=== PATIENT | male | born 1945 | race Caucasian/White ===

== ENCOUNTER 2021-09-06 06:37 | Inpatient (IN) ==
--- NOTE | 2021-09-06 06:54 | DR.EXTPAIN ---
HPI <RANJIT DEREK Last Filed: 09/22/21 08:09> Time seen Time Seen by Provider: 09/06/21 06:53 HPI Comment HPI Comment: PATIENT IS 76YR OLD MALE IN ER WITH RIGHT FOOT NUMBNESS AND GENERALIZED BODYACHES. FELL THIS AM AND IS HAVING INCREASING SOB. O2 SAT LOW WHEN EMS ARRIVE AT PATIENT HOME. PAIN LEFT GROIN. Complaint/Symptoms Chief Complaint Doctor Comments: GENERALIZED BODYACHES AND RIGHT FOOT NUMBNESS, FELL THIS AM. COVID-19 Coronavirus risk:travel/contact w/high risk person: No Has patient experienced Coronavirus symptoms: No Nurses notes reviewed Nurses Notes Review: Yes Source History Provided: Patient and EMS Mode of arrival Mode of Arrival: EMS Context History of: Arthritis Associated signs and symptoms Associated Signs and Symptoms: Pain and Swelling PMH <RANJIT DEREK - Last Filed: 09/22/21 08:09> PMH Past Surgical History: Yes ROS <NAZGORDON DEREK - Last Filed: 09/22/21 08:09> Review of Systems Constitutional: See HPI, Fever and Weakness Eyes: No Symptoms Reported and See HPI ENTM: No Symptoms Reported; negative Nose Discharge and Nose Congestion Respiratoy: See HPI and Short of Breath; negative Moist Cough and Wheezing Cardiovascular: No Symptoms Reported and See HPI; negative Chest Pain Gastrointestinal/Abdominal: See HPI and Abdominal Pain (LEFT GROIN PAIN.); neg ative Diarrhea, Nausea and Vomiting Genitourinary: No Symptoms Reported and See HPI; negative Dysuria Neurological: See HPI, Headache and Weakness; negative Dizziness Musculoskeletal: No Symptoms Reported, See HPI, Leg (RT) and Foot (RT) Integumentary: No Symptoms Reported, See HPI and Wound (RIGHT FOOT UNLCER NOT INSPECTED.) Hematologic/Lymphatic: No Symptoms Reported and See HPI; negative Easy Bruising Endocrine: No Symptoms Reported and See HPI; negative Increased Thirst and Increased Urine Psychiatric: No Symptoms Reported and See HPI All Other Systems: Reviewed and Negative PE <RANJIT DEREK Last Filed: 09/22/21 08:09> Vital Signs Vitals: Temperature 102.0 F Pulse Rate 105 Respiratory Rate 26 Blood Pressure 144/56 O2 Sat by Pulse Oximetry 95 General Limitations: No Limitations General Appearance: Alert and In No Apparent Distress Head Head Exam: Normal Inspection Eyes Eye exam: Normal Appearance; negative Scleral Icterus and Conjunctival Injection ENT ENT Exam: Normal Exam, Normal Oropharynx, Normal External Ear Exam and TM's Normal Bilaterally Neck Neck Exam: Normal Inspection and Trachea Midline; negative Tenderness Chest Chest Inspection: Normal Inspection and Symmetric Chest Wall Rise; negative Tenderness Respiratory Respiratory Exam: Normal Lung Sounds Bilat; negative Accessory Muscle Use, Chest Wall Tenderness and Respiratory Distress Respiratory Exam: Bilateral: Rhonchi and Lower: Rhonchi Cardiovascular Cardiovascular Exam: Regular Rate, Normal Rhythm and Normal Heart Sounds; negative Systolic Murmur and Diastolic Murmur Abdominal Exam Abdominal Exam: Normal Bowel Sounds, Soft, Tenderness and Other (LEFT GROIN TRNDER.) Extremities Extremities Exam: Normal Inspection and Other (FOOT ULCER AND INFECTION NOT INPECTED AT THIS TIME.) Back Back Exam: Normal Inspection; negative (R) CVA Tenderness and (L) CVA Tenderness Neurological Neurological Exam: Alert and Oriented X3; negative Motor Sensory Deficit Psychiatric Psychiatric Exam: Normal Affect and Normal Mood Skin Skin Exam: Warm, Dry, Intact and Normal Color <Jhon Burrell - Last Filed: 09/06/21 10:35> Vital Signs Vitals: Temperature 102.0 F Pulse Rate 105 Respiratory Rate 26 Blood Pressure 144/56 O2 Sat by Pulse Oximetry 95 MDM <RANJIT OCHOA - Last Filed: 09/22/21 08:09> Differential Diagnosis Differential Diagnosis: Other (CELLULITIS RIGHT FOOT AND LEG, LEFT GROIN PAIN, WEAKNESS) COURSE <RANJIT OCHOA - Last Filed: 09/22/21 08:09> Treatment Treatment: SEE ORDERS. PATIENT SIGN OUT TO DR. BURRELL AT CHANGE OF SHIFT. <Jhon Burrell - Last Filed: 09/06/21 10:35> Treatment Treatment: Pt iniitally seen and worked up by Dr Ochoa, signed over to me. W/u shows markedly elevated WBCs, 33K, last value in the computer was relatively normal. Pt has been under the care of Dr Eugene for bilateral lower extremity ulcerations. 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 Legs being treated with dressings, changed 2x/week. Pt was given IV antibiotic. Legs unwrapped, + diffuse edema, shallow ulcerations/wounds, stage II wounds. + diffuse induratino with mild erythema. CXR interpreted as without infiltrates, though has some increased markings of R base. Will admit for treatment of probable cellulitis of his legs. Disucssed with the covering attending, Dr Ghotra, will admit. ROR <RANJIT OCHOA - Last Filed: 09/22/21 08:09> Labs Reviewed Laboratory Results Reviewed?: Yes Result Diagrams: 09/15/21 04:27 09/15/21 04:27 Laboratory: 09/06/21 07:52 Blood Blood Culture - Final 09/06/21 07:26 Blood Blood Culture - Final WBC 33.1 X10^3/uL (3.6-10.0) H* 09/06/21 07:26 RBC 4.55 X10^6/uL (4.7-6.0) L 09/06/21 07:26 Hgb 11.9 g/dL (13.5-18.0) L 09/06/21 07:26 Hct 37.4 % (42.0-54.0) L 09/06/21 07:26 MCV 82.1 fL (80.0-100.0) 09/06/21 07:26 MCH 26.1 pg (27.0-34.0) L 09/06/21 07:26 MCHC 31.8 g/dL (33.0-35.0) L 09/06/21 07:26 RDW 16.8 % (11.6-16.5) H 09/06/21 07:26 Plt Count 367 X10^3/uL (150.0-450.0) 09/06/21 07:26 Plt Count Comment Adequate (ADEQUATE) 09/06/21 07:26 MPV 8.2 fL (7.4-11.0) 09/06/21 07:26 Neut % (Auto) 85.3 % (42.0-75.0) H 09/06/21 07:26 Lymph % (Auto) 8.7 % (21.0-51.0) L 09/06/21 07:26 Desha % (Auto) 5.2 % (0.0-13.0) 09/06/21 07:26 Eos % (Auto) 0.0 % (0.9-2.9) L 09/06/21 07:26 Baso % (Auto) 0.8 % (0.2-1.0) 09/06/21 07:26 Neut # (Auto) 28.2 x10^3/uL (2.2-4.8) H 09/06/21 07:26 Lymph # (Auto) 2.9 X10^3/uL (1.3-2.9) 09/06/21 07:26 Desha # (Auto) 1.7 x10^3/uL (0.3-0.8) H 09/06/21 07:26 Eos # (Auto) 0.0 x10^3/uL (0.0-0.2) 09/06/21 07:26 Baso # (Auto) 0.3 X10^3/uL (0.0-0.1) H 09/06/21 07:26 Absolute Nucleated RBC 0.0 /100WBC 09/06/21 07:26 Total Counted 100 09/06/21 07:26 Neutrophils % (Manual) 65 % (39-76) 09/06/21 07:26 Band Neutrophils % 19 % (0-10) H 09/06/21 07:26 Lymphocytes % (Manual) 10 % (13-43) L 09/06/21 07:26 Monocytes % (Manual) 4 % (4-9) 09/06/21 07:26 Metamyelocytes % 2 09/06/21 07:26 Plt Morphology Comment Normal (NORMAL) 09/06/21 07:26 RBC Morphology Abnormal (NORMAL) 09/06/21 07:26 Hypochromasia Slight A 09/06/21 07:26 Tear Drop Cells Slight 09/06/21 07:26 Sodium 137 mmol/L (136-145) 09/06/21 07:26 Corrected Sodium 142 mmol/L (136-145) 09/06/21 07:26 Potassium 4.0 mmol/L (3.5-5.1) 09/06/21 07:26 Chloride 102 mmol/L (98-107) 09/06/21 07:26 Carbon Dioxide 25.7 mmol/L (21-32) 09/06/21 07:26 BUN 26 mg/dL (7-18) H 09/06/21 07:26 Creatinine 1.20 mg/dL (0.70-1.30) 09/06/21 07:26 Est GFR (MDRD) Af Amer > 60 (>60) 09/06/21 07:26 Est GFR (MDRD) Non-Af > 60 (>60) 09/06/21 07:26 Glucose 299 mg/dL (65-99) H 09/06/21 07:26 Lactic Acid 2.7 mmol/L (0.4-2.0) H 09/06/21 07:26 Calcium 8.1 mg/dL (8.5-10.1) L 09/06/21 07:26 Corrected Calcium 9.1 mg/dL (8.5-10.1) 09/06/21 07:26 Total Bilirubin 0.70 mg/dL (0.2-1.0) 09/06/21 07:26 AST 49 Units/L (15-37) H 09/06/21 07:26 ALT 24 Units/L (12-78) 09/06/21 07:26 Alkaline Phosphatase 107 Units/L (46-116) 09/06/21 07:26 Creatine Kinase 1030 Units/L (39-308) H 09/06/21 07:26 CK-MB (CK-2) 9.0 ng/mL (0-4.0) H* 09/06/21 07:26 CK/CKMB % Calc 0.9 % (<4) 09/06/21 07:26 Troponin I High Sens 35.8 ng/L (4.0-60.0) 09/06/21 07:26 Total Protein 6.9 g/dL (6.4-8.2) 09/06/21 07:26 Albumin 2.8 g/dL (3.4-5.0) L 09/06/21 07:26 Globulin 4.1 g/dL (2.5-4.5) 09/06/21 07:26 Albumin/Globulin Ratio 0.7 Ratio (1.1-2.1) L 09/06/21 07:26 Specimen Type Catherized urine 09/06/21 07:26 Urine Color Yellow (YELLOW) 09/06/21 07:26 Urine Appearance Clear (CLEAR) 09/06/21 07:26 Urine pH 8.0 (5.0 - 8.0) 09/06/21 07:26 Ur Specific [place] 1.010 (1.000-1.030) 09/06/21 07:26 Urine Protein 1+ (NEGATIVE) 09/06/21 07:26 Urine Glucose (UA) 2+ (NEGATIVE) 09/06/21 07:26 Urine Ketones Negative (NEGATIVE) 09/06/21 07:26 Urine Occult Blood 1+ (NEGATIVE) 09/06/21 07:26 Urine Nitrite Negative (NEGATIVE) 09/06/21 07:26 Urine Bilirubin Negative (NEGATIVE) 09/06/21 07:26 Urine Urobilinogen Normal (NORMAL) 09/06/21 07:26 Ur Leukocyte Esterase Negative (NEGATIVE) 09/06/21 07:26 Urine RBC 0-2 /HPF (0-3) 09/06/21 07:26 Urine WBC None seen /HPF (0-5) 09/06/21 07:26 Ur Squamous Epith Cells Rare /HPF (NEGATIVE) 09/06/21 07:26 Urine Bacteria Negative /HPF (NEGATIVE) 09/06/21 07:26 Ur Culture Indicated? No/not indicated 09/06/21 07:26 SARS-CoV-2 (PCR) Negative (NEGATIVE) 09/06/21 09:55 Influenza Type A (PCR) Negative (NEGATIVE) 09/06/21 09:55 Influenza Type B (PCR) Negative (NEGATIVE) 09/06/21 09:55 RSV (PCR) Negative (NEGATIVE) 09/06/21 09:55 XRAY XRAY Interpreted by: Radiologist and Self <Jhon Burrell - Last Filed: 09/06/21 10:35> Labs Reviewed Laboratory Results Reviewed?: Yes Laboratory: 09/06/21 07:52 Blood Blood Culture - Final 09/06/21 07:26 Blood Blood Culture - Final WBC 33.1 X10^3/uL (3.6-10.0) H* 09/06/21 07:26 RBC 4.55 X10^6/uL (4.7-6.0) L 09/06/21 07:26 Hgb 11.9 g/dL (13.5-18.0) L 09/06/21 07:26 Hct 37.4 % (42.0-54.0) L 09/06/21 07:26 MCV 82.1 fL (80.0-100.0) 09/06/21 07:26 MCH 26.1 pg (27.0-34.0) L 09/06/21 07:26 MCHC 31.8 g/dL (33.0-35.0) L 09/06/21 07: RDW 16.8 % (11.6-16.5) H 09/06/21 07:26 Plt Count 367 X10^3/uL (150.0-450.0) 09/06/21 07:26 Plt Count Comment Adequate (ADEQUATE) 09/06/21 07: MPV 8.2 fL (7.4-11.0) 09/06/21 07:26 Neut % (Auto) 85.3 % (42.0-75.0) H 09/06/21 07: Lymph % (Auto) 8.7 % (21.0-51.0) L 09/06/21 07:26 Desha % (Auto) 5.2 % (0.0-13.0) 09/06/21 07:26 Eos % (Auto) 0.0 % (0.9-2.9) L 09/06/21 07: Baso % (Auto) 0.8 % (0.2-1.0) 09/06/21 07:26 Neut # (Auto) 28.2 x10^3/uL (2.2-4.8) H 09/06/21 07:26 Lymph # (Auto) 2.9 X10^3/uL (1.3-2.9) 09/06/21 07:26 Desha # (Auto) 1.7 x10^3/uL (0.3-0.8) H 09/06/21 07:26 Eos # (Auto) 0.0 x10^3/uL (0.0-0.2) 09/06/21 07:26 Baso # (Auto) 0.3 X10^3/uL (0.0-0.1) H 09/06/21 07:26 Absolute Nucleated RBC 0.0 /100WBC 09/06/21 07:26 Total Counted 100 09/06/21 07:26 Neutrophils % (Manual) 65 % (39-76) 09/06/21 07:26 Band Neutrophils % 19 % (0-10) H 09/06/21 07:26 Lymphocytes % (Manual) 10 % (13-43) L 09/06/21 07:26 Monocytes % (Manual) 4 % (4-9) 09/06/21 07:26 Metamyelocytes % 2 09/06/21 07:26 Plt Morphology Comment Normal (NORMAL) 09/06/21 07:26 RBC Morphology Abnormal (NORMAL) 09/06/21 07:26 Hypochromasia Slight A 09/06/21 07:26 Tear Drop Cells Slight 09/06/21 07:26 Sodium 137 mmol/L (136-145) 09/06/21 07:26 Corrected Sodium 142 mmol/L (136-145) 09/06/21 07:26 Potassium 4.0 mmol/L (3.5-5.1) 09/06/21 07:26 Chloride 102 mmol/L (98-107) 09/06/21 07:26 Carbon Dioxide 25.7 mmol/L (21-32) 09/06/21 07:26 BUN 26 mg/dL (7-18) H 09/06/21 07:26 Creatinine 1.20 mg/dL (0.70-1.30) 09/06/21 07:26 Est GFR (MDRD) Af Amer > 60 (>60) 09/06/21 07:26 Est GFR (MDRD) Non-Af > 60 (>60) 09/06/21 07:26 Glucose 299 mg/dL (65-99) H 09/06/21 07:26 Lactic Acid 2.7 mmol/L (0.4-2.0) H 09/06/21 07:26 Calcium 8.1 mg/dL (8.5-10.1) L 09/06/21 07:26 Corrected Calcium 9.1 mg/dL (8.5-10.1) 09/06/21 07:26 Total Bilirubin 0.70 mg/dL (0.2-1.0) 09/06/21 07:26 AST 49 Units/L (15-37) H 09/06/21 07:26 ALT 24 Units/L (12-78) 09/06/21 07:26 Alkaline Phosphatase 107 Units/L (46-116) 09/06/21 07:26 Creatine Kinase 1030 Units/L (39-308) H 09/06/21 07:26 CK-MB (CK-2) 9.0 ng/mL (0-4.0) H* 09/06/21 07:26 CK/CKMB % Calc 0.9 % (<4) 09/06/21 07:26 Troponin I High Sens 35.8 ng/L (4.0-60.0) 09/06/21 07:26 Total Protein 6.9 g/dL (6.4-8.2) 09/06/21 07: Albumin 2.8 g/dL (3.4-5.0) L 09/06/21 07: Globulin 4.1 g/dL (2.5-4.5) 09/06/21 07: Albumin/Globulin Ratio 0.7 Ratio (1.1-2.1) L 09/06/21 07:26 Specimen Type Catherized urine 09/06/21 07: Urine Color Yellow (YELLOW) 09/06/21 07: Urine Appearance Clear (CLEAR) 09/06/21 07: Urine pH 8.0 (5.0 - 8.0) 09/06/21 07:26 Ur Specific [place] 1.010 (1.000-1.030) 09/06/21 07:26 Urine Protein 1+ (NEGATIVE) 09/06/21 07: Urine Glucose (UA) 2+ (NEGATIVE) 09/06/21 07: Urine Ketones Negative (NEGATIVE) 09/06/21 07: Urine Occult Blood 1+ (NEGATIVE) 09/06/21 07: Urine Nitrite Negative (NEGATIVE) 09/06/21 07: Urine Bilirubin Negative (NEGATIVE) 09/06/21 07:26 Urine Urobilinogen Normal (NORMAL) 09/06/21 07:26 Ur Leukocyte Esterase Negative (NEGATIVE) 09/06/21 07:26 Urine RBC 0-2 /HPF (0-3) 09/06/21 07:26 Urine WBC None seen /HPF (0-5) 09/06/21 07:26 Ur Squamous Epith Cells Rare /HPF (NEGATIVE) 09/06/21 07:26 Urine Bacteria Negative /HPF (NEGATIVE) 09/06/21 07:26 Ur Culture Indicated? No/not indicated 09/06/21 07:26 SARS-CoV-2 (PCR) Negative (NEGATIVE) 09/06/21 09:55 Influenza Type A (PCR) Negative (NEGATIVE) 09/06/21 09:55 Influenza Type B (PCR) Negative (NEGATIVE) 09/06/21 09:55 RSV (PCR) Negative (NEGATIVE) 09/06/21 09:55 Other Results Comments: WBC and Lactic acid elevated. XRAY XRAY Interpreted by: Radiologist X-ray Results: CXR without pneumonia EKG Rate: 109 [place]: Normal Rhythm: ST Block: None Hypertrophy: None ST: Nonsp Opioid <RANJIT OCHOA - Last Filed: 09/22/21 08:09> Opioid Risk Tool Total: 0 Total Score Risk Category: Low Risk Copyright: [employer] predicting aberrant behaviors <Jhon Burrell - Last Filed: 09/06/21 10:35> Opioid Risk Tool Total: 0 Total Score Risk Category: Low Risk <RANJIT OCHOA - Last Filed: 09/22/21 08:09> Diagnosis Discharge Problem: Cellulitis Qualifiers: Site of cellulitis: extremity Site of cellulitis of extremity: lower extremity Laterality: unspecified laterality Qualified Code(s): L03.119 - Cellulitis of unspecified part of limb Instructions Instructions: Cellulitis, Adult Preseptal Cellulitis, Adult Orbital Cellulitis Cellulitis, Adult, [id number] Forms: Excuse From Work or School Precautions for COVID19 [facility] Social Distancing
[2021-09-06] MEDS ORDERED: LASIX IVP ONE ×2 (07:09→07:18)
[2021-09-06] MEDS ORDERED: SOLU-Medrol 125 MG VIAL IVP ONE (07:10)
[2021-09-06] MEDS ORDERED: DUONEB 0.5 MG/3 MG (3 mL) NEB ONE ×2 (07:10→07:27)
[2021-09-06] MEDS ORDERED: SOLU-Medrol 125 MG VIAL ONE (07:18)
--- NOTE | 2021-09-06 07:29 | RAD ---
HISTORYShortness of breathSTUDYChest AP [id number]/2022FINDINGSPosi tioning is less than optimal with the apices incompletely demonstrated on the image. Heart size is normal. Candi are normal. Lungs are well inflated and free of acute alveolar infiltrates. There is some peribronchial thickening in the right lower lobe suggestive of bronchitis which could be acute, chronic, or both. No pleural effusions or pneumothoraces are identified. Bony thorax is unremarkable.IMPRESSIONNo acute alveolar infiltrates or congestive heart failureRight lower lobe peribronchial thickening suggestive of bronchitisElectronically signed by: GEOFF ANTOINE (Sep 06, 2021 07:28:56)
[2021-09-06 07:42] LABS: BASOPHILS # (AUTO) 0.3 X10^3/uL (0.0-0.1); BASOPHILS % (AUTO) 0.8 % (0.2-1.0); HEMATOCRIT 37.4 % (42.0-54.0); HEMOGLOBIN 11.9 g/dL (13.5-18.0); LYMPHOCYTES # (AUTO) 2.9 X10^3/uL (1.3-2.9); LYMPHOCYTES % (AUTO) 8.7 % (21.0-51.0); MEAN CORPUSCULAR HEMOGLOBIN 26.1 pg (27.0-34.0); MEAN CORPUSCULAR HGB CONC 31.8 g/dL (33.0-35.0); MEAN CORPUSCULAR VOLUME 82.1 fL (80.0-100.0); MEAN PLATELET VOLUME 8.2 fL (7.4-11.0); MONOCYTES # (AUTO) 1.7 x10^3/uL (0.3-0.8); MONOCYTES % (AUTO) 5.2 % (0.0-13.0); NEUTROPHILS # (AUTO) 28.2 x10^3/uL (2.2-4.8); NEUTROPHILS % (AUTO) 85.3 % (42.0-75.0); RED BLOOD COUNT 4.55 X10^6/uL (4.7-6.0); RED CELL DISTRIBUTION WIDTH 16.8 % (11.6-16.5)
[2021-09-06 07:43] LABS: BILIRUBIN,URINE NEGATIVE (NEGATIVE); BLOOD/HEMOGLOBIN,URINE 1+ (NEGATIVE); GLUCOSE, URINE 2+ (NEGATIVE); KETONES,URINE NEGATIVE (NEGATIVE); LEUKOCYTE ESTERASE ,URINE NEGATIVE (NEGATIVE); NITRITES,URINE NEGATIVE (NEGATIVE); PROTEIN,URINE 1+ (NEGATIVE); UROBILINOGEN,URINE NORMAL (NORMAL)
[2021-09-06 07:52] LABS: APPEARANCE,URINE CLEAR (CLEAR); COLOR,URINE YELLOW (YELLOW); RBC,URINE 0-2 /HPF (0-3)
[2021-09-06 07:53] LABS: BACTERIA,URINE NEGATIVE /HPF (NEGATIVE); SQUAMOUS EPITHELIAL CELL,UR RARE /HPF (NEGATIVE)
[2021-09-06 07:59] LABS: LACTIC ACID 2.7 mmol/L (0.4-2.0)
[2021-09-06 08:04] LABS: WHITE BLOOD COUNT 33.1 X10^3/uL (3.6-10.0)
[2021-09-06 08:05] LABS: BAND NEUTROPHILS % 19 % (0-10); HYPOCHROMASIA SLIGHT; METAMYELOCYTES % 2; PLATELET MORPHOLOGY COMMENT NORMAL (NORMAL); TEAR DROP CELLS SLIGHT
[2021-09-06] MEDS ORDERED: ZOSYN VIAL 3.375 GRAMS 3.375 G in NS 100 ML IV + SPIKE MINIBAG* 100 ML IV ONE (08:08)
[2021-09-06] MEDS ORDERED: NS 100 ML IV 100 ML ONE (08:13)
[2021-09-06] MEDS ORDERED: ZOSYN VIAL 3.375 GRAMS IV ONE (08:13)
[2021-09-06 08:24] LABS: ALANINE AMINOTRANSFERASE 24 Units/L (12-78); ALBUMIN 2.8 g/dL (3.4-5.0); ALKALINE PHOSPHATASE 107 Units/L (46-116); ASPARTATE AMINO TRANSFERASE 49 Units/L (15-37); BLOOD UREA NITROGEN 26 mg/dL (7-18); CALCIUM 8.1 mg/dL (8.5-10.1); CARBON DIOXIDE 25.7 mmol/L (21-32); CHLORIDE 102 mmol/L (98-107); COR CA(FOR HYPOALB) 9.1 mg/dL (8.5-10.1); COR NA(FOR HYPERGLY) 142 mmol/L (136-145); SODIUM 137 mmol/L (136-145); TOTAL PROTEIN 6.9 g/dL (6.4-8.2); eGFR NON BLACK RACES > 60 (>60)
[2021-09-06 08:31] LABS: CKMB % 0.9 % (<4); CREATINE KINASE 1030 Units/L (39-308)
[2021-09-06] MEDS ORDERED: CATAPRES TAB 0.1 MG PO ONE (08:42)
--- NOTE | 2021-09-06 10:47 | CT ---
HISTORYFall, left groin painSTUDYCT bony pelvis without contrastTechnique: Axial noncontrast images with coronal and sagittal reformats. Dose reduction procedures were used with mA/kv adjusted for body size. Resolution is limited by the patient's body habitus.COMPARISONNoneFINDINGSBones are osteopenic. Sacrum and SI joints are intact as is the coccyx. The pelvic bones are intact. The hip joints are bilaterally intact. Degenerative joint space narrowing is present bilaterally. The proximal femurs are intact. No definite pelvic soft tissue abnormality is identified. No hip joint effusions or periarticular soft tissue abnormality identified. Bilateral inguinal lymphadenopathy is present right greater than left.IMPRESSIONResolution limited by the patient's body habitusNo definite fractures identified to the limitation noted aboveBilateral inguinal lymphadenopathy right greater than leftElectronically signed by: GEOFF ANTOINE (Sep 06, 2021 10:46:42)
[2021-09-06] MEDS: NS 1,000 ML IV 1,000 ML IV SCH (15:52)
[2021-09-06] MEDS: ZOSYN IV SCH ×3 (15:53→21:15)
[2021-09-06] MEDS: D5W IV SCH ×3 (15:53→21:15)
[2021-09-06] MEDS: NovoLIN R (or HumuLIN R) SUBCUT PRN ×3 (17:00→22:52)
[2021-09-06] MEDS: NORCO 10/325 TAB PO PRN (17:34)
[2021-09-06] MEDS: ACCUNEB 1.25 MG NEBULE NEB PRN (20:15)
[2021-09-06] MEDS: NYSTATIN POWDER TOP SCH (20:50)
[2021-09-06] MEDS: SNACK - Diabetic Appropriate PO SCH (20:50)
[2021-09-07] MEDS: NS 1,000 ML IV 1,000 ML IV SCH ×2 (02:21→14:05)
[2021-09-07 03:19] LABS: BASOPHILS # (AUTO) 0.4 X10^3/uL (0.0-0.1); BASOPHILS % (AUTO) 2.1 % (0.2-1.0); HEMATOCRIT 35.5 % (42.0-54.0); HEMOGLOBIN 11.4 g/dL (13.5-18.0); LYMPHOCYTES # (AUTO) 2.9 X10^3/uL (1.3-2.9); LYMPHOCYTES % (AUTO) 14.2 % (21.0-51.0); MEAN CORPUSCULAR HEMOGLOBIN 26.5 pg (27.0-34.0); MEAN CORPUSCULAR HGB CONC 32.1 g/dL (33.0-35.0); MEAN CORPUSCULAR VOLUME 82.7 fL (80.0-100.0); MEAN PLATELET VOLUME 8.5 fL (7.4-11.0); MONOCYTES # (AUTO) 1.7 x10^3/uL (0.3-0.8); MONOCYTES % (AUTO) 8.5 % (0.0-13.0); NEUTROPHILS # (AUTO) 15.5 x10^3/uL (2.2-4.8); NEUTROPHILS % (AUTO) 75.2 % (42.0-75.0); RED CELL DISTRIBUTION WIDTH 17.2 % (11.6-16.5)
[2021-09-07 03:23] LABS: WHITE BLOOD COUNT 20.6 X10^3/uL (3.6-10.0)
[2021-09-07 03:55] LABS: ALANINE AMINOTRANSFERASE 24 Units/L (12-78); ALBUMIN 2.4 g/dL (3.4-5.0); ALKALINE PHOSPHATASE 92 Units/L (46-116); ASPARTATE AMINO TRANSFERASE 46 Units/L (15-37); BLOOD UREA NITROGEN 32 mg/dL (7-18); CALCIUM 7.9 mg/dL (8.5-10.1); CARBON DIOXIDE 26.5 mmol/L (21-32); CHLORIDE 100 mmol/L (98-107); COR CA(FOR HYPOALB) 9.2 mg/dL (8.5-10.1); COR NA(FOR HYPERGLY) 141 mmol/L (136-145); CREATINE KINASE 751 Units/L (39-308); CREATININE 1.29 mg/dL (0.70-1.30); SODIUM 133 mmol/L (136-145); TOTAL PROTEIN 6.6 g/dL (6.4-8.2); eGFR NON BLACK RACES 58 (>60)
[2021-09-07 03:57] LABS: CREATINE KINASE MB 7.5 ng/mL (0-4.0)
[2021-09-07] MEDS: NovoLIN R (or HumuLIN R) SUBCUT PRN ×2 (03:57→06:47)
--- NOTE | 2021-09-07 05:23 | RAD ---
HISTORYDyspneaSTUDYPortable AP chestCOMPARISONFebruary 2021FINDINGSStable heart size. Indistinct parenchymal density medial right lower lung consistent with infiltrate or atelectasis. No consolidation is seen. The upper lobes remain relatively clear. There is no evidence for pleural effusion.IMPRESSIONDescribed findings in the medial right lower lung are concerning for developing infiltrate or atelectasis. Continued follow-up indicated.Electronically signed by: DIANE ROJAS (Sep 07, 2021 05:22:52)
[2021-09-07] MEDS: D5W IV SCH ×3 (05:28→21:17)
[2021-09-07] MEDS: ZOSYN IV SCH ×3 (05:28→21:17)
[2021-09-07] MEDS: ACCUNEB 1.25 MG NEBULE NEB PRN (09:24)
[2021-09-07] MEDS: NYSTATIN POWDER TOP SCH ×2 (09:51→21:16)
[2021-09-07] MEDS: GENTAMICIN TOPICAL CRM TOP SCH ×3 (09:51→21:17)
[2021-09-07] MEDS: XARELTO PO SCH ×2 (09:52→20:51)
[2021-09-07] MEDS: NEURONTIN CAP 300 MG PO SCH ×2 (09:52→20:51)
[2021-09-07] MEDS: TOPAMAX TAB 100 MG PO SCH ×2 (09:53→20:51)
[2021-09-07] MEDS: COZAAR PO SCH (09:53)
[2021-09-07] MEDS: ULTRAM PO PRN ×2 (10:08→21:27)
--- NOTE | 2021-09-07 10:26 | DR.H&P ---
H&P - History & Physical for Day of: H&P Date: 09/06/21 - Chief Complaint Chief Complaint: BILATERAL LOWER EXTREMITY REDNESS, SWELLING, BODY ACHES, RIGHT FOOT NUMBNESS - History of Present Illness History of Present Illness: IS A 76 YEAR OLD PATIENT OF [facility] IN [place], [place]. HE PRESENTED TO THE ER WITH COMPLAINTS OF RIGHT FOOT NUMBNESS, REDNESS AND SWELLING TO BILATERAL LOWER EXTREMITIES, RIGHT GROIN PAIN, AND GENERALIZED BODY ACHES. HE ALSO ADMITS TO INCREASING SHORTNESS OF BREATH FOR THE PAST TWO DAYS. PATIENT ADMITS TO FALLING AT HOME PRIOR TO ARRIVAL. HE REPORTS BEING UNDER THE CARE OF FOR BILATERAL LOWER EXTREMITY ULCERATIONS. HE RECEIVES DRESSING CHANGES TO BILATERAL LEGS TWICE A WEEK. HE REPORTS TAKING DOXYCYCLINE 100MG PO BID AT HOME WITHOUT IMPROVEMENT IN SYMPTOMS. EXAMINATION REVEALED DIFFUSE 2+ EDEMA, SHALLOW ULCERATIONS/WOUNDS, STAGE II WOUNDS, DIFFUSE INDURATIONS WITH ERYTHEMA. HIS PMH INCLUDES: OBESITY, HYPERLIPIDEMIA, HTN, SLEEP APNEA, DM II, APPENDECTOMY, CHOLECYSTECTOMY, SPLEENECTOMY, LEFT LEG SHUNT. ON ARRIVAL TO THE ER, VITALS WERE 99.9-106-20-95%-131/73. LABS WERE OBTAINED. WBC 33.1, RBC 4.55, HGB 11.9, HCT 37.4, SODIUM 137, POTASSIUM 4.0, CHLORIDE 102, BUN 26, CREATININE 1.20, GLUCOSE 299, LACTIC ACID 2.7, CALCIUM 8.1, AST 49, CREATINE KINASE 1030, CK-MB 9.0, ALBUMIN 2.8. URINALYSIS UNREMARKABLE. COVID, INFLUENZA, AND RSV NEGATIVE. BLOOD CULTURES WERE SET UP. A CHEST XRAY WAS OBTAINED AND REVEALED: No acute alveolar infiltrates or congestive heart failure. Right lower lobe peribronchial thickening suggestive of bronchitis. EKG WAS OBTAINED AND REVEALED: SINUS TACHYC ARDIA WITH HR 109. A PELVIS CT WAS OBTAINED AND REVEALED: Bones are osteopenic. Sacrum and SI joints are intact as is the coccyx. The pelvic bones are intact. The hip joints are bilaterally intact. Degenerative joint space narrowing is present bilaterally. The proximal femurs are intact. No definite pelvic soft tissue abnormality is identified. No hip joint effusions or periarticular soft tissue abnormality identified. Bilateral inguinal lymphadenopathy is present right greater than left. IN THE ER, HE WAS GIVEN LASIX 40MG IV X 1, DUONEB X 1, SOLU-MEDROL 125MG IV X 1, ZOXYN 3.375G IV X 1. HE WAS ADMITTED TO THE HOSPITAL FOR FURTHER EVALUATION AND TREATMENT OF BILATERAL LOWER EXTREMITY CELLULITIS, RHABDOMYOLYSIS, ACUTE BRONCHITIS. HE WAS STARTED ON NORMAL SALINE AT KVO, ZOSYN 2.25G IV TID, DUONEBS TID, GENTAMICIN CREAM TID, OTBS ACHS, LANTUS 15 UNITS SC AM, HUMULIN R 5 UNITS TID WITH MEALS, NORCO 10/325MG PO Q6H PRN. HIS HOME MEDICATIONS OF NEURONTIN, COZAAR, XARELTO, FLOMAX, RESTORIX, TOPAMAX, AND ULTRAM PRN WERE ALSO RESUMED. PATIENT WILL HAVE DAILY WOUND CARE. WE WILL ORDER FOR PHYSICAL THERAPY TO EVALUATE PATIENT WELL. OTHERWISE, WE PLAN TO FOLLOW UP WITH AM LABS AND CONTINUE TO MONITOR. TIME SPENT ON CLINICAL ASSESSMENT, REVIEWING LABS AND IMAGING, DECISION MAKING, AND DOCUMENTATION GREATER THAN 75 MINUTES. - Past Medical History Past Medical History: Diabetes, Dyslipidemia, Hypertension - Past Surgical History Surgical History: Abdominal Surgery, Appendectomy, Cholecystectomy, Spleenectomy - Social History Does any household member use tobacco: No Alcohol Use: None Drug Use: None - Medications Home Medications: metformin Allergy (Verified 08/15/21 11:40) semaglutide [From Ozempic] Allergy (Verified 08/15/21 11:40) CONTINUE taking the following medications amoxicillin-pot clavulanate 1 tab PO BID 09/06/21 [History] doxycycline monohydrate 100 mg PO BID 09/06/21 [History] gabapentin 600 mg PO BID 09/06/21 [History] hydrocodone-acetaminophen 1 tab PO BID PRN 09/06/21 [History] ketoconazole 1 applic TOPICAL DAILY 09/06/21 [History] losartan 100 mg PO DAILY 09/06/21 [History] mesalamine 2.4 g PO DAILY 09/06/21 [History] mupirocin calcium 1 applic TOPICAL DAILY 09/06/21 [History] rivaroxaban [Xarelto] 2.5 mg PO BID 09/06/21 [History] tamsulosin 0.4 mg PO HS 09/06/21 [History] temazepam 30 mg PO HS PRN 09/06/21 [History] topiramate 150 mg PO BID 09/06/21 [History] tramadol 50 mg PO Q6H PRN 09/06/21 [History] insulin regular hum U-500 conc [Humulin R U-500 (Conc) Kwikpen] 120 unit SUBCUT BID 09/07/21 [History] New Prescriptions nitrofurantoin monohyd/m-cryst [Macrobid] 100 mg PO BID #14 cap 09/06/21 [Rx] - Review of Systems Constitutional: Weakness Eyes: No Symptoms Reported ENT: No Symptoms Reported Respiratory: Shortness of Breath, SOB with Excertion Cardiovascular: Edema Gastrointestinal: No Symptoms Reported Genitourinary: No Symptoms Reported Musculoskeletal: No Symptoms Reported Skin: See HPI, Wound Neurological: Weakness - Physical Exam Vital Signs: Temperature 98.3 F Pulse Rate [Right] 75 Pulse Rate 84 Respiratory Rate 22 Blood Pressure [Right Arm] 121/56 Blood Pressure 141/62 O2 Sat by Pulse Oximetry 97 Oriented: Normal Eyes: Normal Ear: Normal Nose: Normal Throat: Normal Respiratory: Diminished Throughout Cardiovascular: Tachycardia : Normal Auscultation: Bowel Sounds: Normal Palpation: Normal Tenderness: Normal Skin: Red, Tender, Hot, Wound Musculoskeletal: Normal Psychiatric: Normal Mood Description: Calm Affect: Normal Speech Pattern: Clear - Assessment/Plan (1) Bilateral lower leg cellulitis Status: Acute Plan: ADMIT, WOUND CARE, NORMAL SALINE AT KVO, ZOSYN 2.25G IV TID, DUONEBS TID, GENTAMICIN CREAM TID, OTBS ACHS, LANTUS 15 UNITS SC AM, HUMULIN R 5 UNITS TID WITH MEALS, NORCO 10/325MG PO Q6H PRN. RESUME HOME MEDS. PHYSICAL THERAPY (2) Rhabdomyolysis Qualifiers: Rhabdomyolysis type: traumatic Status: Acute (3) Acute bronchitis Qualifiers: Bronchitis organism: unspecified organism Qualified Code(s): J20.9 - Acute bronchitis, unspecified Status: Acute - Allergies Allergies/Adverse Reactions: Allergies Allergy/AdvReac Type Severity Reaction Status Date / Time metformin Allergy Verified 08/15/21 11:40 semaglutide [From Ozempic] Allergy Verified 08/15/21 11:40
[2021-09-07] MEDS: MESALAMINE 1.2 GM PO SCH (11:22)
[2021-09-07] MEDS ORDERED: NovoLIN R (or HumuLIN R) SUBCUT SCH ×2 (12:00)
[2021-09-07] MEDS: NovoLIN R (or HumuLIN R) SUBCUT SCH ×4 (12:06→20:49)
[2021-09-07] MEDS: LANTUS SC SCH (12:08)
[2021-09-07] MEDS: DUONEB 0.5 MG/3 MG (3 mL) NEB SCH ×2 (13:06→20:40)
[2021-09-07] MEDS: SNACK - Diabetic Appropriate PO SCH (19:45)
[2021-09-07] MEDS ORDERED: SNACK - Diabetic Appropriate PO SCH (20:00)
[2021-09-07] MEDS: RESTORIL CAP 15 MG PO PRN (20:51)
[2021-09-07] MEDS: FLOMAX PO SCH (20:51)
[2021-09-08] MEDS: NORCO 10/325 TAB PO PRN ×3 (00:01→21:00)
[2021-09-08] MEDS: NS 1,000 ML IV 1,000 ML IV SCH ×2 (02:40→16:28)
[2021-09-08] MEDS: NovoLIN R (or HumuLIN R) SUBCUT SCH ×7 (05:02→20:58)
[2021-09-08] MEDS: GENTAMICIN TOPICAL CRM TOP SCH ×3 (05:03→21:04)
[2021-09-08] MEDS: ZOSYN IV SCH (05:03)
[2021-09-08] MEDS: D5W IV SCH (05:03)
[2021-09-08 05:37] LABS: BASOPHILS # (AUTO) 0.5 X10^3/uL (0.0-0.1); BASOPHILS % (AUTO) 2.9 % (0.2-1.0); EOSINOPHILS # (AUTO) 0.5 x10^3/uL (0.0-0.2); EOSINOPHILS % (AUTO) 2.7 % (0.9-2.9); HEMATOCRIT 33.9 % (42.0-54.0); HEMOGLOBIN 10.9 g/dL (13.5-18.0); LYMPHOCYTES # (AUTO) 4.6 X10^3/uL (1.3-2.9); LYMPHOCYTES % (AUTO) 25.9 % (21.0-51.0); MEAN CORPUSCULAR HEMOGLOBIN 26.4 pg (27.0-34.0); MEAN CORPUSCULAR HGB CONC 32.2 g/dL (33.0-35.0); MEAN CORPUSCULAR VOLUME 82.1 fL (80.0-100.0); MEAN PLATELET VOLUME 8.3 fL (7.4-11.0); MONOCYTES # (AUTO) 1.5 x10^3/uL (0.3-0.8); MONOCYTES % (AUTO) 8.3 % (0.0-13.0); NEUTROPHILS # (AUTO) 10.7 x10^3/uL (2.2-4.8); NEUTROPHILS % (AUTO) 60.2 % (42.0-75.0); RED BLOOD COUNT 4.13 X10^6/uL (4.7-6.0); WHITE BLOOD COUNT 17.8 X10^3/uL (3.6-10.0)
[2021-09-08 05:51] LABS: ALANINE AMINOTRANSFERASE 22 Units/L (12-78); ALBUMIN 2.3 g/dL (3.4-5.0); ALKALINE PHOSPHATASE 86 Units/L (46-116); ASPARTATE AMINO TRANSFERASE 37 Units/L (15-37); BLOOD UREA NITROGEN 28 mg/dL (7-18); CALCIUM 7.5 mg/dL (8.5-10.1); CARBON DIOXIDE 27.6 mmol/L (21-32); CHLORIDE 102 mmol/L (98-107); COR CA(FOR HYPOALB) 8.9 mg/dL (8.5-10.1); COR NA(FOR HYPERGLY) 141 mmol/L (136-145); CREATINE KINASE 375 Units/L (39-308); CREATININE 1.08 mg/dL (0.70-1.30); SODIUM 135 mmol/L (136-145); TOTAL PROTEIN 6.2 g/dL (6.4-8.2); eGFR NON BLACK RACES > 60 (>60)
--- NOTE | 2021-09-08 05:58 | RAD ---
PROCEDURE: Chest X-ray 1 View .HISTORY: Dyspnea.TECHNIQUE: AP view .COMPARISON: 09/07/2021.TECHNICAL QUALITY: Satisfactory .FINDINGS:Heart size upper limits of normal.Continued mildly increased central vascularity.No definite consolidation or pleural fluid. Left lower lobe not well visualized due to increased heart size.IMPRESSION:Unchanged cardiomegaly with central vascular prominence.Electronically signed by: Enrrique Lauren (Sep 08, 2021 05:57:40)
[2021-09-08] MEDS: DUONEB 0.5 MG/3 MG (3 mL) NEB SCH ×3 (06:00→20:05)
[2021-09-08] MEDS ORDERED: LANTUS SC SCH (09:10)
[2021-09-08] MEDS: MESALAMINE 1.2 GM PO SCH (09:29)
[2021-09-08] MEDS: NYSTATIN POWDER TOP SCH ×2 (09:30→21:02)
[2021-09-08] MEDS: COZAAR PO SCH (09:31)
[2021-09-08] MEDS: NEURONTIN CAP 300 MG PO SCH ×2 (09:31→21:00)
[2021-09-08] MEDS: XARELTO PO SCH ×2 (09:32→21:00)
[2021-09-08] MEDS: TOPAMAX TAB 100 MG PO SCH ×2 (09:32→21:00)
--- NOTE | 2021-09-08 10:32 | PCM.PROG ---
Progress Note - Progress Note for Day of Date of Exam: 09/07/21 - Subjective Subjective: WAS ADMITTED ON 09/06. HE IS BEING TREATED FOR BILATERAL LOWER LEG CELLULITIS, RHABDOMYOLYSIS, ACUTE BRONCHITIS, AND UNCONTROLLED DIABETES MELLITIS. TODAY, HE IS ALERT AND ORIENTED, LYING IN BED ON MORNING ROUNDS. HE CONTINUES WITH COMPLAINTS OF NUMBNESS TO THE RIGHT LEG AND FOOT, W ELL GENERALIZED WEAKNESS AND BODY ACHES TODAY. HE ALSO COMPLAINS OF SHORTNESS OF BREATH. ON EXAMINATION, HEART IS REGULAR IN RATE AND RHYTHM. BILATERAL LUNGS NOTED WITH DIMINISHED LUNG SOUNDS THROUGHOUT. ABDOMEN IS OBESE, SOFT, AND NON- TENDER WITH NORMAL BOWEL SOUNDS NOTED IN ALL QUADRANTS. LOWER EXTREMITIES CONTINUE WITH DIFFUSE 2+ EDEMA, SHALLOW ULCERATIONS/WOUNDS, STAGE II WOUNDS, DIFFUSE INDURATIONS WITH ERYTHEMA. HIS VITALS THIS MORNING ARE: 98.3-75-20-95%-121/56. LABS WERE OBTAINED. ABNORMAL LAB VALUES INCLUDE THE FOLLOWING: WBC 20.6, RBC 4.30, HGB 11.4, HCT 35.5, SODIUM 133, BUN 32, GLUCOSE 454, CALCIUM 7.9, AST 46, CREATINE KINASE 751, CK-MB 7.5, ALBUMIN 2.4. BLOOD CULTURES ARE PENDING. A CHEST XRAY WAS OBTAINED AND REVEALED: Stable heart size. Indistinct parenchymal density medial right lower lung consistent with infiltrate or atelectasis. No consolidation is seen. The upper lobes remain relatively clear. There is no evidence for pleural effusion. HE IS CURRENTLY RECEIVING NORMAL SALINE AT KVO, ZOSYN 2.25G IV TID, DUONEBS TID, GENTAMICIN CREAM TID, OTBS ACHS, LANTUS 15 UNITS SC AM, HUMULIN R 5 UNITS TID WITH MEALS, NORCO 10/325MG PO Q6H PRN. HIS HOME MEDICATIONS OF NEURONTIN, COZAAR, XARELTO, FLOMAX, RESTORIX, TOPAMAX, AND ULTRAM PRN WERE ALSO RESUMED. PATIENT WILL HAVE DAILY WOUND CARE. PHYSICAL THERAPY WILL WORK WITH HIM TODAY. OTHERWISE, WE PLAN TO FOLLOW UP WITH AM LABS AND CONTINUE TO MONITOR. TIME SPENT ON CLINICAL ASSESSMENT, REVIEWING LABS AND IMAGING, DECISION MAKING, AND DOCUMENTATION GREATER THAN 45 MINUTES. - Past Medical Family Social History Past Med/Fam/Surg Hx: No changes since H&P Allergies: Allergies metformin Allergy (Verified 08/15/21 11:40) semaglutide [From Ozempic] Allergy (Verified 08/15/21 11:40) - Review of Systems ROS: No change since H&P - Vital Signs and I&O's Vital Signs: Temperature 98.4 F Pulse Rate [Right] 93 Pulse Rate 83 Respiratory Rate 20 Blood Pressure [Right Arm] 136/62 Blood Pressure 141/62 O2 Sat by Pulse Oximetry 92 Intake and Output: Intake & Output 09/05/21 09/06/21 09/07/21 09/08/21 11:59 11:59 11:59 11:59 Intake Total 2970 / 2970 2570 / 2570 Output Total 5350 / 5350 3325 / 3325 Balance -2380 / -2380 -755 / -755 - Physical Exam Oriented: Normal Eyes: Normal Ear: Normal Nose: Normal Throat: Normal Respiratory: Generalized, Diminished Cardiovascular: Normal, Edema (2+ PITTING EDEMA ) : Normal Auscultation: Bowel Sounds: Normal Palpation: Normal Tenderness: Normal Skin: Red, Tender, Hot, Wound Musculoskeletal: Normal Psychiatric: Normal Mood Description: Calm Affect: Normal Speech Pattern: Clear, Appropriate - Laboratory and Diagnostics Result Diagrams: 09/08/21 05:19 09/08/21 05:19 Labs: 09/06/21 07:52 Blood Blood Culture - Preliminary 09/06/21 07:26 Blood Blood Culture - Preliminary Laboratory WBC 17.8 X10^3/uL (3.6-10.0) H 09/08/21 05:19 RBC 4.13 X10^6/uL (4.7-6.0) L 09/08/21 05:19 Hgb 10.9 g/dL (13.5-18.0) L 09/08/21 05:19 Hct 33.9 % (42.0-54.0) L 09/08/21 05:19 MCV 82.1 fL (80.0-100.0) 09/08/21 05:19 MCH 26.4 pg (27.0-34.0) L 09/08/21 05:19 MCHC 32.2 g/dL (33.0-35.0) L 09/08/21 05:19 RDW 17.0 % (11.6-16.5) H 09/08/21 05:19 Plt Count 329 X10^3/uL (150.0-450.0) 09/08/21 05:19 Plt Count Comment Adequate (ADEQUATE) 09/06/21 07:26 MPV 8.3 fL (7.4-11.0) 09/08/21 05:19 Neut % (Auto) 60.2 % (42.0-75.0) 09/08/21 05:19 Lymph % (Auto) 25.9 % (21.0-51.0) 09/08/21 05:19 [place] % (Auto) 8.3 % (0.0-13.0) 09/08/21 05:19 Eos % (Auto) 2.7 % (0.9-2.9) 09/08/21 05:19 Baso % (Auto) 2.9 % (0.2-1.0) H 09/08/21 05:19 Neut # (Auto) 10.7 x10^3/uL (2.2-4.8) H 09/08/21 05:19 Lymph # (Auto) 4.6 X10^3/uL (1.3-2.9) H 09/08/21 05:19 [place] # (Auto) 1.5 x10^3/uL (0.3-0.8) H 09/08/21 05:19 Eos # (Auto) 0.5 x10^3/uL (0.0-0.2) H 09/08/21 05:19 Baso # (Auto) 0.5 X10^3/uL (0.0-0.1) H 09/08/21 05:19 Absolute Nucleated RBC 0.1 /100WBC 09/08/21 05:19 Total Counted 100 09/06/21 07:26 Neutrophils % (Manual) 65 % (39-76) 09/06/21 07:26 Band Neutrophils % 19 % (0-10) H 09/06/21 07:26 Lymphocytes % (Manual) 10 % (13-43) L 09/06/21 07:26 Monocytes % (Manual) 4 % (4-9) 09/06/21 07:26 Metamyelocytes % 2 09/06/21 07:26 Plt Morphology Comment Normal (NORMAL) 09/06/21 07:26 RBC Morphology Abnormal (NORMAL) 09/06/21 07:26 Hypochromasia Slight A 09/06/21 07:26 Tear Drop Cells Slight 09/06/21 07:26 Sodium 135 mmol/L (136-145) L 09/08/21 05:19 Corrected Sodium 141 mmol/L (136-145) 09/08/21 05:19 Potassium 4.5 mmol/L (3.5-5.1) 09/08/21 05:19 Chloride 102 mmol/L (98-107) 09/08/21 05:19 Carbon Dioxide 27.6 mmol/L (21-32) 09/08/21 05:19 BUN 28 mg/dL (7-18) H 09/08/21 05:19 Creatinine 1.08 mg/dL (0.70-1.30) 09/08/21 05:19 Est GFR (MDRD) Af Amer > 60 (>60) 09/08/21 05:19 Est GFR (MDRD) Non-Af > 60 (>60) 09/08/21 05:19 Glucose 340 mg/dL (65-99) H 09/08/21 05:19 POC Glucose (mg/dL) 314 mg/dL (65-99) H 09/08/21 09:41 Lactic Acid 2.7 mmol/L (0.4-2.0) H 09/06/21 07:26 Calcium 7.5 mg/dL (8.5-10.1) L 09/08/21 05:19 Corrected Calcium 8.9 mg/dL (8.5-10.1) 09/08/21 05:19 Total Bilirubin 0.20 mg/dL (0.2-1.0) 09/08/21 05:19 AST 37 Units/L (15-37) 09/08/21 05:19 ALT 22 Units/L (12-78) 09/08/21 05:19 Alkaline Phosphatase 86 Units/L (46-116) 09/08/21 05:19 Creatine Kinase 375 Units/L (39-308) H 09/08/21 05:19 CK-MB (CK-2) 7.5 ng/mL (0-4.0) H* 09/07/21 02:55 CK/CKMB % Calc 1.0 % (<4) 09/07/21 02:55 Troponin I High Sens 29.3 ng/L (4.0-60.0) 09/07/21 02:55 Total Protein 6.2 g/dL (6.4-8.2) L 09/08/21 05:19 Albumin 2.3 g/dL (3.4-5.0) L 09/08/21 05:19 Globulin 3.9 g/dL (2.5-4.5) 09/08/21 05:19 Albumin/Globulin Ratio 0.6 Ratio (1.1-2.1) L 09/08/21 05:19 Specimen Type Catherized urine 09/06/21 07:26 Urine Color Yellow (YELLOW) 09/06/21 07:26 Urine Appearance Clear (CLEAR) 09/06/21 07:26 Urine pH 8.0 (5.0 - 8.0) 09/06/21 07:26 Ur Specific [place] 1.010 (1.000-1.030) 09/06/21 07:26 Urine Protein 1+ (NEGATIVE) 09/06/21 07:26 Urine Glucose (UA) 2+ (NEGATIVE) 09/06/21 07:26 Urine Ketones Negative (NEGATIVE) 09/06/21 07:26 Urine Occult Blood 1+ (NEGATIVE) 09/06/21 07:26 Urine Nitrite Negative (NEGATIVE) 09/06/21 07:26 Urine Bilirubin Negative (NEGATIVE) 09/06/21 07:26 Urine Urobilinogen Normal (NORMAL) 09/06/21 07:26 Ur Leukocyte Esterase Negative (NEGATIVE) 09/06/21 07:26 Urine RBC 0-2 /HPF (0-3) 09/06/21 07:26 Urine WBC None seen /HPF (0-5) 09/06/21 07:26 Ur Squamous Epith Cells Rare /HPF (NEGATIVE) 09/06/21 07:26 Urine Bacteria Negative /HPF (NEGATIVE) 09/06/21 07:26 Ur Culture Indicated? No/not indicated 09/06/21 07:26 SARS-CoV-2 (PCR) Negative (NEGATIVE) 09/06/21 09:55 Influenza Type A (PCR) Negative (NEGATIVE) 09/06/21 09:55 Influenza Type B (PCR) Negative (NEGATIVE) 09/06/21 09:55 RSV (PCR) Negative (NEGATIVE) 09/06/21 09:55 - Plan (1) Bilateral lower leg cellulitis Status: Acute Plan: WOUND CARE, NORMAL SALINE AT KVO, ZOSYN 2.25G IV TID, DUONEBS TID, GENTAMICIN CREAM TID, OTBS ACHS, LANTUS 15 UNITS SC AM, HUMULIN R 5 UNITS TID W ITH MEALS, NORCO 10/325MG PO Q6H PRN. RESUME HOME MEDS. PHYSICAL THERAPY (2) Rhabdomyolysis Status: Acute Qualifiers: Rhabdomyolysis type: traumatic (3) Acute bronchitis Status: Acute Qualifiers: Bronchitis organism: unspecified organism Qualified Code(s): J20.9 - Acute bronchitis, unspecified
--- NOTE | 2021-09-08 10:38 | PCM.PROG ---
Progress Note - Progress Note for Day of Date of Exam: 09/08/21 - Subjective Subjective: WAS ADMITTED ON 09/06. HE IS BEING TREATED FOR BILATERAL LOWER LEG CELLULITIS, RHABDOMYOLYSIS, ACUTE BRONCHITIS, AND UNCONTROLLED DIABETES MELLITIS. TODAY, HE IS ALERT AND ORIENTED, LYING IN BED ON MORNING ROUNDS. HE CONTINUES WITH COMPLAINTS OF NUMBNESS TO THE RIGHT LEG AND FOOT, W ELL GENERALIZED WEAKNESS AND BODY ACHES TODAY. HE ALSO COMPLAINS OF SHORTNESS OF BREATH. HE DOES ADMIT TO SLIGHT IMPROVEMENT IN SYMPTOMS TODAY. ON EXAMINATION, HEART IS REGULAR IN RATE AND RHYTHM. BILATERAL LUNGS NOTED WITH DIMINISHED LUNG SOUNDS THROUGHOUT. ABDOMEN IS OBESE, SOFT, AND NON-TENDER WITH NORMAL BOWEL SOUNDS NOTED IN ALL QUADRANTS. LOWER EXTREMITIES CONTINUE WITH DIFFUSE 2+ EDEMA, SHALLOW ULCERATIONS/WOUNDS, STAGE II WOUNDS, DIFFUSE INDURATIONS WITH ERYTHEMA. HIS VITALS THIS MORNING ARE: 98.4-93-18-92%-136/62. LABS WERE OBTAINED. ABNORMAL LAB VALUES INCLUDE THE FOLLOWING: WBC 17.8, RBC 4.13, HGB 10.9, HCT 33.9, SODIUM 135, BUN 28, GLUCOSE 340, CALCIUM 7.5, CREATINE KINASE 375, TOTAL PROTEIN 6.2, ALBUMIN 2.3. BLOOD CULTURES ARE PENDING. A CHEST XRAY WAS OBTAINED AND REVEALED: Unchanged cardiomegaly with central vascular prominence. HE IS CURRENTLY RECEIVING NORMAL SALINE AT KVO, ZOSYN 2.25G IV TID, DUONEBS TID, GENTAMICIN CREAM TID, OTBS ACHS, LANTUS 15 UNITS SC AM, HUMULIN R 5 UNITS TID WITH MEALS, NORCO 10/325MG PO Q6H PRN. HIS HOME MEDICATIONS OF NEURONTIN, COZAAR, XARELTO, FLOMAX, RESTORIX, TOPAMAX, AND ULTRAM PRN WERE ALSO RESUMED. TODAY, WE WILL INCREASE LANTUS TO 25 UNITS SC AM, INCREASE ZOSYN TO 3.375G IV Q8H, AND MONITOR 2 HOUR POSTPRANDIAL GLUCOSE LEVELS. PATIENT WILL HAVE DAILY WOUND CARE. PHYSICAL THERAPY WILL CONTINUE TO WORK WITH PATIENT. OTHERWISE, WE PLAN TO FOLLOW UP WITH AM LABS AND CONTINUE TO MONITOR. TIME SPENT ON CLINICAL ASSESSMENT, REVIEWING LABS AND IMAGING, DECISION MAKING, AND DOCUMENTATION GREATER THAN 45 MINUTES. - Past Medical Family Social History Past Med/Fam/Surg Hx: No changes since H&P Allergies: Allergies metformin Allergy (Verified 08/15/21 11:40) semaglutide [From Ozempic] Allergy (Verified 08/15/21 11:40) - Review of Systems ROS: No change since H&P - Vital Signs and I&O's Vital Signs: Temperature 98.4 F Pulse Rate [Right] 93 Pulse Rate 83 Respiratory Rate 20 Blood Pressure [Right Arm] 136/62 Blood Pressure 141/62 O2 Sat by Pulse Oximetry 92 Intake and Output: Intake & Output 09/05/21 09/06/21 09/07/21 09/08/21 11:59 11:59 11:59 11:59 Intake Total 2970 / 2970 2570 / 2570 Output Total 5350 / 5350 3325 / 3325 Balance -2380 / -2380 -755 / -755 - Physical Exam Oriented: Normal Eyes: Normal Ear: Normal Nose: Normal Throat: Normal Respiratory: Generalized, Diminished Cardiovascular: Normal, Edema (2+ PITTING EDEMA ) : Normal Auscultation: Bowel Sounds: Normal Palpation: Normal Tenderness: Normal Skin: Red, Tender, Hot, Wound Musculoskeletal: Normal Psychiatric: Normal Mood Description: Calm Affect: Normal Speech Pattern: Clear, Appropriate - Laboratory and Diagnostics Result Diagrams: 09/08/21 05:19 09/08/21 05:19 Labs: 09/06/21 07:52 Blood Blood Culture - Preliminary 09/06/21 07:26 Blood Blood Culture - Preliminary Laboratory WBC 17.8 X10^3/uL (3.6-10.0) H 09/08/21 05:19 RBC 4.13 X10^6/uL (4.7-6.0) L 09/08/21 05:19 Hgb 10.9 g/dL (13.5-18.0) L 09/08/21 05:19 Hct 33.9 % (42.0-54.0) L 09/08/21 05:19 MCV 82.1 fL (80.0-100.0) 09/08/21 05:19 MCH 26.4 pg (27.0-34.0) L 09/08/21 05:19 MCHC 32.2 g/dL (33.0-35.0) L 09/08/21 05:19 RDW 17.0 % (11.6-16.5) H 09/08/21 05:19 Plt Count 329 X10^3/uL (150.0-450.0) 09/08/21 05:19 Plt Count Comment Adequate (ADEQUATE) 09/06/21 07:26 MPV 8.3 fL (7.4-11.0) 09/08/21 05:19 Neut % (Auto) 60.2 % (42.0-75.0) 09/08/21 05:19 Lymph % (Auto) 25.9 % (21.0-51.0) 09/08/21 05:19 [place] % (Auto) 8.3 % (0.0-13.0) 09/08/21 05:19 Eos % (Auto) 2.7 % (0.9-2.9) 09/08/21 05:19 Baso % (Auto) 2.9 % (0.2-1.0) H 09/08/21 05:19 Neut # (Auto) 10.7 x10^3/uL (2.2-4.8) H 09/08/21 05:19 Lymph # (Auto) 4.6 X10^3/uL (1.3-2.9) H 09/08/21 05:19 [place] # (Auto) 1.5 x10^3/uL (0.3-0.8) H 09/08/21 05:19 Eos # (Auto) 0.5 x10^3/uL (0.0-0.2) H 09/08/21 05:19 Baso # (Auto) 0.5 X10^3/uL (0.0-0.1) H 09/08/21 05:19 Absolute Nucleated RBC 0.1 /100WBC 09/08/21 05:19 Total Counted 100 09/06/21 07:26 Neutrophils % (Manual) 65 % (39-76) 09/06/21 07:26 Band Neutrophils % 19 % (0-10) H 09/06/21 07:26 Lymphocytes % (Manual) 10 % (13-43) L 09/06/21 07:26 Monocytes % (Manual) 4 % (4-9) 09/06/21 07:26 Metamyelocytes % 2 09/06/21 07:26 Plt Morphology Comment Normal (NORMAL) 09/06/21 07:26 RBC Morphology Abnormal (NORMAL) 09/06/21 07:26 Hypochromasia Slight A 09/06/21 07:26 Tear Drop Cells Slight 09/06/21 07:26 Sodium 135 mmol/L (136-145) L 09/08/21 05:19 Corrected Sodium 141 mmol/L (136-145) 09/08/21 05:19 Potassium 4.5 mmol/L (3.5-5.1) 09/08/21 05:19 Chloride 102 mmol/L (98-107) 09/08/21 05:19 Carbon Dioxide 27.6 mmol/L (21-32) 09/08/21 05:19 BUN 28 mg/dL (7-18) H 09/08/21 05:19 Creatinine 1.08 mg/dL (0.70-1.30) 09/08/21 05:19 Est GFR (MDRD) Af Amer > 60 (>60) 09/08/21 05:19 Est GFR (MDRD) Non-Af > 60 (>60) 09/08/21 05:19 Glucose 340 mg/dL (65-99) H 09/08/21 05:19 POC Glucose (mg/dL) 314 mg/dL (65-99) H 09/08/21 09:41 Lactic Acid 2.7 mmol/L (0.4-2.0) H 09/06/21 07:26 Calcium 7.5 mg/dL (8.5-10.1) L 09/08/21 05:19 Corrected Calcium 8.9 mg/dL (8.5-10.1) 09/08/21 05:19 Total Bilirubin 0.20 mg/dL (0.2-1.0) 09/08/21 05:19 AST 37 Units/L (15-37) 09/08/21 05:19 ALT 22 Units/L (12-78) 09/08/21 05:19 Alkaline Phosphatase 86 Units/L (46-116) 09/08/21 05:19 Creatine Kinase 375 Units/L (39-308) H 09/08/21 05:19 CK-MB (CK-2) 7.5 ng/mL (0-4.0) H* 09/07/21 02:55 CK/CKMB % Calc 1.0 % (<4) 09/07/21 02:55 Troponin I High Sens 29.3 ng/L (4.0-60.0) 09/07/21 02:55 Total Protein 6.2 g/dL (6.4-8.2) L 09/08/21 05:19 Albumin 2.3 g/dL (3.4-5.0) L 09/08/21 05:19 Globulin 3.9 g/dL (2.5-4.5) 09/08/21 05:19 Albumin/Globulin Ratio 0.6 Ratio (1.1-2.1) L 09/08/21 05:19 Specimen Type Catherized urine 09/06/21 07:26 Urine Color Yellow (YELLOW) 09/06/21 07:26 Urine Appearance Clear (CLEAR) 09/06/21 07:26 Urine pH 8.0 (5.0 - 8.0) 09/06/21 07:26 Ur Specific [place] 1.010 (1.000-1.030) 09/06/21 07:26 Urine Protein 1+ (NEGATIVE) 09/06/21 07:26 Urine Glucose (UA) 2+ (NEGATIVE) 09/06/21 07:26 Urine Ketones Negative (NEGATIVE) 09/06/21 07:26 Urine Occult Blood 1+ (NEGATIVE) 09/06/21 07:26 Urine Nitrite Negative (NEGATIVE) 09/06/21 07:26 Urine Bilirubin Negative (NEGATIVE) 09/06/21 07:26 Urine Urobilinogen Normal (NORMAL) 09/06/21 07:26 Ur Leukocyte Esterase Negative (NEGATIVE) 09/06/21 07:26 Urine RBC 0-2 /HPF (0-3) 09/06/21 07:26 Urine WBC None seen /HPF (0-5) 09/06/21 07:26 Ur Squamous Epith Cells Rare /HPF (NEGATIVE) 09/06/21 07:26 Urine Bacteria Negative /HPF (NEGATIVE) 09/06/21 07:26 Ur Culture Indicated? No/not indicated 09/06/21 07:26 SARS-CoV-2 (PCR) Negative (NEGATIVE) 09/06/21 09:55 Influenza Type A (PCR) Negative (NEGATIVE) 09/06/21 09:55 Influenza Type B (PCR) Negative (NEGATIVE) 09/06/21 09:55 RSV (PCR) Negative (NEGATIVE) 09/06/21 09:55 - Plan (1) Bilateral lower leg cellulitis Status: Acute Plan: WOUND CARE, NORMAL SALINE AT KVO, ZOSYN 3.375G IV TID, DUONEBS TID, GENTAMICIN CREAM TID, OTBS ACHS, LANTUS 25 UNITS SC AM, HUMULIN R 5 UNITS TID WITH MEALS, NORCO 10/325MG PO Q6H PRN. RESUME HOME MEDS. 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
[2021-09-08] MEDS ORDERED: NS 50 ML IV 50 ML IV ONE (13:11)
[2021-09-08] MEDS: ZOSYN VIAL 3.375 GRAMS 3.375 G in NS 50 ML IV + SPIKE MINIBAG* 50 ML IV SCH ×2 (13:50→21:00)
[2021-09-08] MEDS: LANTUS SC SCH (18:49)
[2021-09-08] MEDS: SNACK - Diabetic Appropriate PO SCH (20:30)
[2021-09-08] MEDS: RESTORIL CAP 15 MG PO PRN (21:00)
[2021-09-08] MEDS: FLOMAX PO SCH (21:00)
[2021-09-09] MEDS: GENTAMICIN TOPICAL CRM TOP SCH ×3 (05:06→23:05)
[2021-09-09] MEDS: NS 1,000 ML IV 1,000 ML IV SCH ×2 (05:06→19:14)
[2021-09-09] MEDS: ZOSYN VIAL 3.375 GRAMS 3.375 G in NS 50 ML IV + SPIKE MINIBAG* 50 ML IV SCH ×2 (05:06→13:00)
[2021-09-09] MEDS: NovoLIN R (or HumuLIN R) SUBCUT SCH ×7 (05:31→22:54)
--- NOTE | 2021-09-09 05:32 | RAD ---
PROCEDURE: Chest X-ray 1 View .HISTORY: Dyspnea.TECHNIQUE: AP view .COMPARISON: 09/08/2021.TECHNICAL QUALITY: Satisfactory .FINDINGS:Continued heart size upper limits of normal with prominent central vascularity similar to improved compared to previous study.No pulmonary consolidation or pleural fluid.IMPRESSION:Some improvement in the central vascularity with no other change present.Electronically signed by: Enrrique Lauren (Sep 09, 2021 05:31:10)
[2021-09-09] MEDS: DUONEB 0.5 MG/3 MG (3 mL) NEB SCH ×3 (06:15→21:17)
[2021-09-09 06:26] LABS: BASOPHILS # (AUTO) 0.2 X10^3/uL (0.0-0.1); BASOPHILS % (AUTO) 1.5 % (0.2-1.0); EOSINOPHILS # (AUTO) 0.4 x10^3/uL (0.0-0.2); EOSINOPHILS % (AUTO) 3.2 % (0.9-2.9); HEMATOCRIT 34.1 % (42.0-54.0); HEMOGLOBIN 10.8 g/dL (13.5-18.0); LYMPHOCYTES % (AUTO) 31.6 % (21.0-51.0); MEAN CORPUSCULAR HEMOGLOBIN 26.4 pg (27.0-34.0); MEAN CORPUSCULAR HGB CONC 31.6 g/dL (33.0-35.0); MEAN CORPUSCULAR VOLUME 83.6 fL (80.0-100.0); MEAN PLATELET VOLUME 8.9 fL (7.4-11.0); MONOCYTES % (AUTO) 7.7 % (0.0-13.0); NEUTROPHILS # (AUTO) 7.2 x10^3/uL (2.2-4.8); RED BLOOD COUNT 4.08 X10^6/uL (4.7-6.0); RED CELL DISTRIBUTION WIDTH 17.1 % (11.6-16.5); WHITE BLOOD COUNT 12.8 X10^3/uL (3.6-10.0)
[2021-09-09 06:35] LABS: ALANINE AMINOTRANSFERASE 21 Units/L (12-78); ALBUMIN 2.2 g/dL (3.4-5.0); ALKALINE PHOSPHATASE 82 Units/L (46-116); ASPARTATE AMINO TRANSFERASE 25 Units/L (15-37); BLOOD UREA NITROGEN 34 mg/dL (7-18); CALCIUM 7.7 mg/dL (8.5-10.1); CARBON DIOXIDE 26.9 mmol/L (21-32); CHLORIDE 103 mmol/L (98-107); COR CA(FOR HYPOALB) 9.1 mg/dL (8.5-10.1); COR NA(FOR HYPERGLY) 141 mmol/L (136-145); CREATINE KINASE 114 Units/L (39-308); CREATININE 1.32 mg/dL (0.70-1.30); SODIUM 136 mmol/L (136-145); TOTAL PROTEIN 6.3 g/dL (6.4-8.2); eGFR NON BLACK RACES 56 (>60)
[2021-09-09] MEDS: MESALAMINE 1.2 GM PO SCH (09:44)
[2021-09-09] MEDS: COZAAR PO SCH (09:45)
[2021-09-09] MEDS: XARELTO PO SCH ×2 (09:45→22:53)
[2021-09-09] MEDS: NEURONTIN CAP 300 MG PO SCH ×2 (09:45→22:54)
[2021-09-09] MEDS: TOPAMAX TAB 100 MG PO SCH ×2 (09:46→22:53)
[2021-09-09] MEDS: LANTUS SC SCH (09:47)
[2021-09-09] MEDS: NYSTATIN POWDER TOP SCH ×2 (09:48→23:02)
[2021-09-09] MEDS: ZOSYN VIAL 3.375 GRAMS 3.375 G in NS 100 ML IV 100 ML IV SCH ×2 (13:17→22:55)
[2021-09-09] MEDS ORDERED: COLACE CAP 100 MG PO PRN (16:29)
[2021-09-09] MEDS ORDERED: MILK OF MAGNESIA PO PRN (16:29)
[2021-09-09] MEDS: SNACK - Diabetic Appropriate PO SCH (21:54)
[2021-09-09] MEDS: FLOMAX PO SCH (22:53)
[2021-09-10 05:24] LABS: ALANINE AMINOTRANSFERASE 25 Units/L (12-78); ALBUMIN 2.3 g/dL (3.4-5.0); ALKALINE PHOSPHATASE 92 Units/L (46-116); ASPARTATE AMINO TRANSFERASE 30 Units/L (15-37); BLOOD UREA NITROGEN 28 mg/dL (7-18); CARBON DIOXIDE 28.7 mmol/L (21-32); CHLORIDE 103 mmol/L (98-107); COR CA(FOR HYPOALB) 9.4 mg/dL (8.5-10.1); COR NA(FOR HYPERGLY) 142 mmol/L (136-145); CREATINE KINASE 72 Units/L (39-308); CREATININE 0.98 mg/dL (0.70-1.30); SODIUM 136 mmol/L (136-145); TOTAL PROTEIN 6.6 g/dL (6.4-8.2); eGFR NON BLACK RACES > 60 (>60)
[2021-09-10 05:26] LABS: BASOPHILS # (AUTO) 0.4 X10^3/uL (0.0-0.1); BASOPHILS % (AUTO) 3.3 % (0.2-1.0); EOSINOPHILS # (AUTO) 0.4 x10^3/uL (0.0-0.2); EOSINOPHILS % (AUTO) 2.8 % (0.9-2.9); HEMOGLOBIN 11.1 g/dL (13.5-18.0); LYMPHOCYTES % (AUTO) 29.8 % (21.0-51.0); MEAN CORPUSCULAR HEMOGLOBIN 26.3 pg (27.0-34.0); MEAN CORPUSCULAR HGB CONC 31.5 g/dL (33.0-35.0); MEAN CORPUSCULAR VOLUME 83.3 fL (80.0-100.0); MEAN PLATELET VOLUME 8.8 fL (7.4-11.0); MONOCYTES # (AUTO) 1.1 x10^3/uL (0.3-0.8); MONOCYTES % (AUTO) 8.6 % (0.0-13.0); NEUTROPHILS # (AUTO) 7.4 x10^3/uL (2.2-4.8); NEUTROPHILS % (AUTO) 55.5 % (42.0-75.0); RED BLOOD COUNT 4.21 X10^6/uL (4.7-6.0); RED CELL DISTRIBUTION WIDTH 16.8 % (11.6-16.5); WHITE BLOOD COUNT 13.3 X10^3/uL (3.6-10.0)
[2021-09-10] MEDS: ZOSYN VIAL 3.375 GRAMS 3.375 G in NS 100 ML IV 100 ML IV SCH ×3 (05:59→22:13)
[2021-09-10] MEDS: GENTAMICIN TOPICAL CRM TOP SCH ×3 (05:59→21:35)
[2021-09-10] MEDS: NovoLIN R (or HumuLIN R) SUBCUT SCH ×7 (05:59→22:18)
[2021-09-10] MEDS: DUONEB 0.5 MG/3 MG (3 mL) NEB SCH ×3 (06:26→20:45)
--- NOTE | 2021-09-10 07:16 | RAD ---
HISTORYSOB, BILAT LOWER LEG CELLULITISSTUDYCHEST, 1 [id number] cardiomediastinal silhouette is stable given rotational change. Worsening bilateral airspace opacities. No pneumothorax or effusion. The bony thorax appears intact.IMPRESSIONWorsening bilateral airspace opacities concerning for pneumonia or congestion/edema.Electronically signed by: GEOFF ANTOINE (Sep 10, 2021 07:14:52)
[2021-09-10] MEDS: NS 1,000 ML IV 1,000 ML IV SCH ×2 (09:42→21:36)
[2021-09-10] MEDS: COZAAR PO SCH (09:42)
[2021-09-10] MEDS: LANTUS SC SCH (09:42)
[2021-09-10] MEDS: NYSTATIN POWDER TOP SCH ×2 (09:43→21:35)
[2021-09-10] MEDS: MESALAMINE 1.2 GM PO SCH (09:43)
[2021-09-10] MEDS: TOPAMAX TAB 100 MG PO SCH ×2 (09:43→21:11)
[2021-09-10] MEDS: NEURONTIN CAP 300 MG PO SCH (09:43)
[2021-09-10] MEDS: XARELTO PO SCH ×2 (09:43→21:07)
--- NOTE | 2021-09-10 14:25 | PCM.PROG ---
Progress Note - Progress Note for Day of Date of Exam: 09/09/21 - Subjective Subjective: WAS ADMITTED ON 09/06. HE IS BEING TREATED FOR BILATERAL LOWER LEG CELLULITIS, RHABDOMYOLYSIS, ACUTE BRONCHITIS, AND UNCONTROLLED DIABETES MELLITIS. TODAY, HE IS ALERT AND ORIENTED, LYING IN BED ON MORNING ROUNDS. HE CONTINUES WITH COMPLAINTS OF NUMBNESS TO THE RIGHT LEG AND FOOT, W ELL GENERALIZED WEAKNESS AND BODY ACHES TODAY. HE ALSO COMPLAINS OF SHORTNESS OF BREATH. ON EXAMINATION, HEART IS REGULAR IN RATE AND RHYTHM. BILATERAL LUNGS NOTED WITH DIMINISHED LUNG SOUNDS THROUGHOUT. ABDOMEN IS OBESE, SOFT, AND NON- TENDER WITH NORMAL BOWEL SOUNDS NOTED IN ALL QUADRANTS. LOWER EXTREMITIES CONTINUE WITH DIFFUSE 2+ EDEMA, SHALLOW ULCERATIONS/WOUNDS, STAGE II WOUNDS, DIFFUSE INDURATIONS WITH ERYTHEMA. HIS VITALS THIS MORNING ARE: 99.3-97-20-90%-135/58. LABS WERE OBTAINED. ABNORMAL LAB VALUES INCLUDE THE FOLLOWING: WBC 12.8, RBC 4.08, HGB 10.8, HCT 34.1, SODIUM 136, POTASSIUM 4.9, BUN 34, CREATININE 1.32, GLUCOSE 329, CALCIUM 7.7, TOTAL PROTEIN 6.3, ALBUMIN 2.2. BLOOD CULTURES ARE PENDING. A CHEST XRAY WAS OBTAINED AND REVEALED: Some improvement in the central vascularity with no other change present. HE IS CURRENTLY RECEIVING NORMAL SALINE AT KVO, ZOSYN 3.375G IV TID, DUONEBS TID, GENTAMICIN CREAM TID, OTBS ACHS, LANTUS 25 UNITS SC AM, HUMULIN R 5 UNITS TID WITH MEALS, NORCO 10/325MG PO Q6H PRN. HIS HOME MEDICATIONS OF NEURONTIN, COZAAR, XARELTO, FLOMAX, RESTORIX, TOPAMAX, AND ULTRAM PRN WERE ALSO RESUMED. TODAY, WE WILL INCREASE LANTUS TO 30 UNITS SC QAM, INCREASED HUMULIN R TO 8 UNITS TID, ADD COLACE 200MG PO Q12H PRN, MILK OF MAGNESIA 30ML PO Q12H PRN. ED[facility] ENT WILL HAVE DAILY WOUND CARE. PHYSICAL THERAPY WILL CONTINUE TO WORK WITH PATIENT. OTHERWISE, WE PLAN TO FOLLOW UP WITH AM LABS AND CONTINUE TO MONITOR. TIME SPENT ON CLINICAL ASSESSMENT, REVIEWING LABS AND IMAGING, DECISION MAKING, AND DOCUMENTATION GREATER THAN 45 MINUTES. - Past Medical Family Social History Past Med/Fam/Surg Hx: No changes since H&P Allergies: Allergies metformin Allergy (Verified 08/15/21 11:40) semaglutide [From Ozempic] Allergy (Verified 08/15/21 11:40) - Review of Systems ROS: No change since H&P - Vital Signs and I&O's Vital Signs: Temperature 98.7 F Pulse Rate [Right] 92 Pulse Rate 90 Respiratory Rate 20 Blood Pressure [Right Arm] 153/65 Blood Pressure 141/62 O2 Sat by Pulse Oximetry 94 Intake and Output: Intake & Output 09/08/21 09/09/21 09/10/21 09/11/21 11:59 11:59 11:59 11:59 Intake Total 2570 / 2570 2986 / 2986 1800 / 1800 Output Total 3325 / 3325 1625 / 1625 1775 / 1775 Balance -755 / -755 1361 / 1361 - Physical Exam Oriented: Normal Eyes: Normal Ear: Normal Nose: Normal Throat: Normal Respiratory: Generalized, Diminished Cardiovascular: Normal, Edema (2+ PITTING EDEMA ) : Normal Auscultation: Bowel Sounds: Normal Palpation: Normal Tenderness: Normal Skin: Red, Tender, Hot, Wound Musculoskeletal: Normal Psychiatric: Normal Mood Description: Calm Affect: Normal Speech Pattern: Clear, Appropriate - Laboratory and Diagnostics Result Diagrams: 09/10/21 04:45 09/10/21 04:45 Labs: 09/06/21 07:52 Blood Blood Culture - Preliminary 09/06/21 07:26 Blood Blood Culture - Preliminary Laboratory WBC 13.3 X10^3/uL (3.6-10.0) H 09/10/21 04:45 RBC 4.21 X10^6/uL (4.7-6.0) L 09/10/21 04:45 Hgb 11.1 g/dL (13.5-18.0) L 09/10/21 04:45 Hct 35.0 % (42.0-54.0) L 09/10/21 04:45 MCV 83.3 fL (80.0-100.0) 09/10/21 04:45 MCH 26.3 pg (27.0-34.0) L 09/10/21 04:45 MCHC 31.5 g/dL (33.0-35.0) L 09/10/21 04:45 RDW 16.8 % (11.6-16.5) H 09/10/21 04:45 Plt Count 352 X10^3/uL (150.0-450.0) 09/10/21 04:45 Plt Count Comment Adequate (ADEQUATE) 09/06/21 07:26 MPV 8.8 fL (7.4-11.0) 09/10/21 04:45 Neut % (Auto) 55.5 % (42.0-75.0) 09/10/21 04:45 Lymph % (Auto) 29.8 % (21.0-51.0) 09/10/21 04:45 [place] % (Auto) 8.6 % (0.0-13.0) 09/10/21 04:45 Eos % (Auto) 2.8 % (0.9-2.9) 09/10/21 04:45 Baso % (Auto) 3.3 % (0.2-1.0) H 09/10/21 04:45 Neut # (Auto) 7.4 x10^3/uL (2.2-4.8) H 09/10/21 04:45 Lymph # (Auto) 4.0 X10^3/uL (1.3-2.9) H 09/10/21 04:45 [place] # (Auto) 1.1 x10^3/uL (0.3-0.8) H 09/10/21 04:45 Eos # (Auto) 0.4 x10^3/uL (0.0-0.2) H 09/10/21 04:45 Baso # (Auto) 0.4 X10^3/uL (0.0-0.1) H 09/10/21 04:45 Absolute Nucleated RBC 0.0 /100WBC 09/10/21 04:45 Total Counted 100 09/06/21 07:26 Neutrophils % (Manual) 65 % (39-76) 09/06/21 07:26 Band Neutrophils % 19 % (0-10) H 09/06/21 07:26 Lymphocytes % (Manual) 10 % (13-43) L 09/06/21 07:26 Monocytes % (Manual) 4 % (4-9) 09/06/21 07:26 Metamyelocytes % 2 09/06/21 07:26 Plt Morphology Comment Normal (NORMAL) 09/06/21 07:26 RBC Morphology Abnormal (NORMAL) 09/06/21 07:26 Hypochromasia Slight A 09/06/21 07:26 Tear Drop Cells Slight 09/06/21 07:26 Sodium 136 mmol/L (136-145) 09/10/21 04:45 Corrected Sodium 142 mmol/L (136-145) 09/10/21 04:45 Potassium 4.6 mmol/L (3.5-5.1) 09/10/21 04:45 Chloride 103 mmol/L (98-107) 09/10/21 04:45 Carbon Dioxide 28.7 mmol/L (21-32) 09/10/21 04:45 BUN 28 mg/dL (7-18) H 09/10/21 04:45 Creatinine 0.98 mg/dL (0.70-1.30) 09/10/21 04:45 Est GFR (MDRD) Af Amer > 60 (>60) 09/10/21 04:45 Est GFR (MDRD) Non-Af > 60 (>60) 09/10/21 04:45 Glucose 336 mg/dL (65-99) H 09/10/21 04:45 POC Glucose (mg/dL) 357 mg/dL (65-99) H 09/10/21 11:02 Lactic Acid 2.7 mmol/L (0.4-2.0) H 09/06/21 07:26 Calcium 8.0 mg/dL (8.5-10.1) L 09/10/21 04:45 Corrected Calcium 9.4 mg/dL (8.5-10.1) 09/10/21 04:45 Total Bilirubin 0.30 mg/dL (0.2-1.0) 09/10/21 04:45 AST 30 Units/L (15-37) 09/10/21 04:45 ALT 25 Units/L (12-78) 09/10/21 04:45 Alkaline Phosphatase 92 Units/L (46-116) 09/10/21 04:45 Creatine Kinase 72 Units/L (39-308) 09/10/21 04:45 CK-MB (CK-2) 7.5 ng/mL (0-4.0) H* 09/07/21 02:55 CK/CKMB % Calc 1.0 % (<4) 09/07/21 02:55 Troponin I High Sens 29.3 ng/L (4.0-60.0) 09/07/21 02:55 Total Protein 6.6 g/dL (6.4-8.2) 09/10/21 04:45 Albumin 2.3 g/dL (3.4-5.0) L 09/10/21 04:45 Globulin 4.3 g/dL (2.5-4.5) 09/10/21 04:45 Albumin/Globulin Ratio 0.5 Ratio (1.1-2.1) L 09/10/21 04:45 Specimen Type Catherized urine 09/06/21 07:26 Urine Color Yellow (YELLOW) 09/06/21 07:26 Urine Appearance Clear (CLEAR) 09/06/21 07:26 Urine pH 8.0 (5.0 - 8.0) 09/06/21 07:26 Ur Specific [place] 1.010 (1.000-1.030) 09/06/21 07:26 Urine Protein 1+ (NEGATIVE) 09/06/21 07:26 Urine Glucose (UA) 2+ (NEGATIVE) 09/06/21 07:26 Urine Ketones Negative (NEGATIVE) 09/06/21 07:26 Urine Occult Blood 1+ (NEGATIVE) 09/06/21 07:26 Urine Nitrite Negative (NEGATIVE) 09/06/21 07:26 Urine Bilirubin Negative (NEGATIVE) 09/06/21 07:26 Urine Urobilinogen Normal (NORMAL) 09/06/21 07:26 Ur Leukocyte Esterase Negative (NEGATIVE) 09/06/21 07:26 Urine RBC 0-2 /HPF (0-3) 09/06/21 07:26 Urine WBC None seen /HPF (0-5) 09/06/21 07:26 Ur Squamous Epith Cells Rare /HPF (NEGATIVE) 09/06/21 07:26 Urine Bacteria Negative /HPF (NEGATIVE) 09/06/21 07:26 Ur Culture Indicated? No/not indicated 09/06/21 07:26 SARS-CoV-2 (PCR) Negative (NEGATIVE) 09/06/21 09:55 Influenza Type A (PCR) Negative (NEGATIVE) 09/06/21 09:55 Influenza Type B (PCR) Negative (NEGATIVE) 09/06/21 09:55 RSV (PCR) Negative (NEGATIVE) 09/06/21 09:55 - Plan (1) Bilateral lower leg cellulitis Status: Acute Plan: WOUND CARE, NORMAL SALINE AT KVO, ZOSYN 3.375G IV TID, DUONEBS TID, GENTAMICIN CREAM TID, OTBS ACHS, LANTUS 30 UNITS SC AM, HUMULIN R 8 UNITS TID WITH MEALS, NORCO 10/325MG PO Q6H PRN. RESUME HOME MEDS. PHYSICAL THERAPY (2) Rhabdomyolysis Status: Acute Qualifiers: Rhabdomyolysis type: traumatic (3) Acute bronchitis Status: Acute Qualifiers: Bronchitis organism: unspecified organism Qualified Code(s): J20.9 - Acute bronchitis, unspecified (4) Diabetes mellitus Status: Chronic Qualifiers: Diabetes mellitus type: type 2 Diabetes mellitus buttermaker insulin use: with buttermaker use Diabetes mellitus complication status: with skin complications Diabetes mellitus complication detail: with other skin ulcer Qualified Code(s): E11.622 - Type 2 diabetes mellitus with other skin ulcer; Z79.4 - FDC (current) use of insulin (5) Hypertension Status: Chronic Qualifiers: Hypertension type: primary hypertension Qualified Code(s): I10 - Essential (primary) hypertension (6) Diabetic neuropathy Status: Chronic Qualifiers: Diabetes mellitus type: type 2 Diabetes mellitus complication detail: with other neurological complication Qualified Code(s): E11.49 - Type 2 diabetes mellitus with other diabetic neurological complication
--- NOTE | 2021-09-10 18:17 | PCM.PROG ---
Progress Note - Progress Note for Day of Date of Exam: 09/10/21 - Subjective Subjective: WAS ADMITTED ON 09/06. HE IS BEING TREATED FOR BILATERAL LOWER LEG CELLULITIS, RHABDOMYOLYSIS, ACUTE BRONCHITIS, AND UNCONTROLLED DIABETES MELLITIS. TODAY, HE IS ALERT AND ORIENTED, LYING IN BED ON MORNING ROUNDS. HE CONTINUES WITH COMPLAINTS OF NUMBNESS TO THE RIGHT LEG AND FOOT, W ELL GENERALIZED WEAKNESS AND BODY ACHES TODAY. HE ALSO COMPLAINS OF SHORTNESS OF BREATH. ON EXAMINATION, HEART IS REGULAR IN RATE AND RHYTHM. BILATERAL LUNGS NOTED WITH DIMINISHED LUNG SOUNDS THROUGHOUT. ABDOMEN IS OBESE, SOFT, AND NON- TENDER WITH NORMAL BOWEL SOUNDS NOTED IN ALL QUADRANTS. LOWER EXTREMITIES CONTINUE WITH DIFFUSE 1+ EDEMA, SHALLOW ULCERATIONS/WOUNDS, STAGE II WOUNDS, DIFFUSE INDURATIONS WITH ERYTHEMA. HIS VITALS THIS MORNING ARE: 97.8-90-20-91%-141/66. LABS WERE OBTAINED. ABNORMAL LAB VALUES INCLUDE THE FOLLOWING: WBC 13.3, RBC 4.21, HGB 11.1, HCT 35.0, BUN 28, GLUCOSE 336, CALCIUM 8.0, ALBUMIN 2.3. BLOOD CULTURES ARE PENDING. A CHEST XRAY WAS OBTAINED AND REVEALED: cardiomediastinal silhouette is stable given rotational change. Worsening bilateral airspace opacities. No pneumothorax or effusion. The bony thorax appears intact. HE IS CURRENTLY RECEIVING NORMAL SALINE AT KVO, ZOSYN 3.375G IV TID, DUONEBS TID, GENTAMICIN CREAM TID, OTBS ACHS, LANTUS 30 UNITS SC AM, HUMULIN R 8 UNITS TID WITH MEALS, NORCO 10/325MG PO Q6H PRN, COLACE PRN, MILK OF MAGNESIA PRN. HIS HOME MEDICATIONS OF NEURONTIN, COZAAR, XARELTO, FLOMAX, RESTORIX, TOPAMAX, AND ULTRAM PRN WERE ALSO RESUMED. TODAY, WE WILL INCREASE LANTUS TO 35 UNITS SC AM AND INCREASE HUMULIN R TO 10 UNITS TID. CYNDI ISIDRO WILL HAVE DAILY WOUND CARE. PHYSICAL THERAPY WILL CONTINUE TO WORK WITH PATIENT. OTHERWISE, WE PLAN TO FOLLOW UP WITH AM LABS AND CONTINUE TO MONITOR. TIME SPENT ON CLINICAL ASSESSMENT, REVIEWING LABS AND IMAGING, DECISION MAKING, AND DOCUMENTATION GREATER THAN 45 MINUTES. - Past Medical Family Social History Past Med/Fam/Surg Hx: No changes since H&P Allergies: Allergies metformin Allergy (Verified 08/15/21 11:40) semaglutide [From Ozempic] Allergy (Verified 08/15/21 11:40) - Review of Systems ROS: No change since H&P - Vital Signs and I&O's Vital Signs: Temperature 99.3 F Pulse Rate [Right] 90 Pulse Rate 68 Respiratory Rate 20 Blood Pressure [Right Arm] 139/63 Blood Pressure 141/62 O2 Sat by Pulse Oximetry 91 Intake and Output: Intake & Output 09/08/21 09/09/21 09/10/21 09/11/21 11:59 11:59 11:59 11:59 Intake Total 2570 / 2570 2986 / 2986 1800 / 1800 1178 / 1178 Output Total 3325 / 3325 1625 / 1625 1775 / 1775 1700 / 1700 Balance -755 / -755 1361 / 1361 -522 / -522 - Physical Exam Oriented: Normal Eyes: Normal Ear: Normal Nose: Normal Throat: Normal Respiratory: Generalized, Diminished Cardiovascular: Normal, Edema (2+ PITTING EDEMA ) : Normal Auscultation: Bowel Sounds: Normal Palpation: Normal Tenderness: Normal Skin: Red, Tender, Hot, Wound Musculoskeletal: Normal Psychiatric: Normal Mood Description: Calm Affect: Normal Speech Pattern: Clear, Appropriate - Laboratory and Diagnostics Result Diagrams: 09/10/21 04:45 09/10/21 04:45 Labs: 09/06/21 07:52 Blood Blood Culture - Preliminary 09/06/21 07:26 Blood Blood Culture - Preliminary Laboratory WBC 13.3 X10^3/uL (3.6-10.0) H 09/10/21 04:45 RBC 4.21 X10^6/uL (4.7-6.0) L 09/10/21 04:45 Hgb 11.1 g/dL (13.5-18.0) L 09/10/21 04:45 Hct 35.0 % (42.0-54.0) L 09/10/21 04:45 MCV 83.3 fL (80.0-100.0) 09/10/21 04:45 MCH 26.3 pg (27.0-34.0) L 09/10/21 04:45 MCHC 31.5 g/dL (33.0-35.0) L 09/10/21 04:45 RDW 16.8 % (11.6-16.5) H 09/10/21 04:45 Plt Count 352 X10^3/uL (150.0-450.0) 09/10/21 04:45 Plt Count Comment Adequate (ADEQUATE) 09/06/21 07:26 MPV 8.8 fL (7.4-11.0) 09/10/21 04:45 Neut % (Auto) 55.5 % (42.0-75.0) 09/10/21 04:45 Lymph % (Auto) 29.8 % (21.0-51.0) 09/10/21 04:45 [place] % (Auto) 8.6 % (0.0-13.0) 09/10/21 04:45 Eos % (Auto) 2.8 % (0.9-2.9) 09/10/21 04:45 Baso % (Auto) 3.3 % (0.2-1.0) H 09/10/21 04:45 Neut # (Auto) 7.4 x10^3/uL (2.2-4.8) H 09/10/21 04:45 Lymph # (Auto) 4.0 X10^3/uL (1.3-2.9) H 09/10/21 04:45 [place] # (Auto) 1.1 x10^3/uL (0.3-0.8) H 09/10/21 04:45 Eos # (Auto) 0.4 x10^3/uL (0.0-0.2) H 09/10/21 04:45 Baso # (Auto) 0.4 X10^3/uL (0.0-0.1) H 09/10/21 04:45 Absolute Nucleated RBC 0.0 /100WBC 09/10/21 04:45 Total Counted 100 09/06/21 07:26 Neutrophils % (Manual) 65 % (39-76) 09/06/21 07:26 Band Neutrophils % 19 % (0-10) H 09/06/21 07:26 Lymphocytes % (Manual) 10 % (13-43) L 09/06/21 07:26 Monocytes % (Manual) 4 % (4-9) 09/06/21 07:26 Metamyelocytes % 2 09/06/21 07:26 Plt Morphology Comment Normal (NORMAL) 09/06/21 07:26 RBC Morphology Abnormal (NORMAL) 09/06/21 07:26 Hypochromasia Slight A 09/06/21 07:26 Tear Drop Cells Slight 09/06/21 07:26 Sodium 136 mmol/L (136-145) 09/10/21 04:45 Corrected Sodium 142 mmol/L (136-145) 09/10/21 04:45 Potassium 4.6 mmol/L (3.5-5.1) 09/10/21 04:45 Chloride 103 mmol/L (98-107) 09/10/21 04:45 Carbon Dioxide 28.7 mmol/L (21-32) 09/10/21 04:45 BUN 28 mg/dL (7-18) H 09/10/21 04:45 Creatinine 0.98 mg/dL (0.70-1.30) 09/10/21 04:45 Est GFR (MDRD) Af Amer > 60 (>60) 09/10/21 04:45 Est GFR (MDRD) Non-Af > 60 (>60) 09/10/21 04:45 Glucose 336 mg/dL (65-99) H 09/10/21 04:45 POC Glucose (mg/dL) 276 mg/dL (65-99) H 09/10/21 16:32 Lactic Acid 2.7 mmol/L (0.4-2.0) H 09/06/21 07:26 Calcium 8.0 mg/dL (8.5-10.1) L 09/10/21 04:45 Corrected Calcium 9.4 mg/dL (8.5-10.1) 09/10/21 04:45 Total Bilirubin 0.30 mg/dL (0.2-1.0) 09/10/21 04:45 AST 30 Units/L (15-37) 09/10/21 04:45 ALT 25 Units/L (12-78) 09/10/21 04:45 Alkaline Phosphatase 92 Units/L (46-116) 09/10/21 04:45 Creatine Kinase 72 Units/L (39-308) 09/10/21 04:45 CK-MB (CK-2) 7.5 ng/mL (0-4.0) H* 09/07/21 02:55 CK/CKMB % Calc 1.0 % (<4) 09/07/21 02:55 Troponin I High Sens 29.3 ng/L (4.0-60.0) 09/07/21 02:55 Total Protein 6.6 g/dL (6.4-8.2) 09/10/21 04:45 Albumin 2.3 g/dL (3.4-5.0) L 09/10/21 04:45 Globulin 4.3 g/dL (2.5-4.5) 09/10/21 04:45 Albumin/Globulin Ratio 0.5 Ratio (1.1-2.1) L 09/10/21 04:45 Specimen Type Catherized urine 09/06/21 07:26 Urine Color Yellow (YELLOW) 09/06/21 07:26 Urine Appearance Clear (CLEAR) 09/06/21 07:26 Urine pH 8.0 (5.0 - 8.0) 09/06/21 07:26 Ur Specific [place] 1.010 (1.000-1.030) 09/06/21 07:26 Urine Protein 1+ (NEGATIVE) 09/06/21 07:26 Urine Glucose (UA) 2+ (NEGATIVE) 09/06/21 07:26 Urine Ketones Negative (NEGATIVE) 09/06/21 07:26 Urine Occult Blood 1+ (NEGATIVE) 09/06/21 07:26 Urine Nitrite Negative (NEGATIVE) 09/06/21 07:26 Urine Bilirubin Negative (NEGATIVE) 09/06/21 07:26 Urine Urobilinogen Normal (NORMAL) 09/06/21 07:26 Ur Leukocyte Esterase Negative (NEGATIVE) 09/06/21 07:26 Urine RBC 0-2 /HPF (0-3) 09/06/21 07:26 Urine WBC None seen /HPF (0-5) 09/06/21 07:26 Ur Squamous Epith Cells Rare /HPF (NEGATIVE) 09/06/21 07:26 Urine Bacteria Negative /HPF (NEGATIVE) 09/06/21 07:26 Ur Culture Indicated? No/not indicated 09/06/21 07:26 SARS-CoV-2 (PCR) Negative (NEGATIVE) 09/06/21 09:55 Influenza Type A (PCR) Negative (NEGATIVE) 09/06/21 09:55 Influenza Type B (PCR) Negative (NEGATIVE) 09/06/21 09:55 RSV (PCR) Negative (NEGATIVE) 09/06/21 09:55 - Plan (1) Bilateral lower leg cellulitis Status: Acute Plan: WOUND CARE, NORMAL SALINE AT KVO, ZOSYN 3.375G IV TID, DUONEBS TID, GENTAM ICIN CREAM TID, OTBS ACHS, LANTUS 35 UNITS SC AM, HUMULIN R 10 UNITS TID WITH MEALS, NORCO 10/325MG PO Q6H PRN. RESUME HOME MEDS. PHYSICAL THERAPY (2) Rhabdomyolysis Status: Acute Qualifiers: Rhabdomyolysis type: traumatic (3) Acute bronchitis Status: Acute Qualifiers: Bronchitis organism: unspecified organism Qualified Code(s): J20.9 - Acute bronchitis, unspecified (4) Diabetes mellitus Status: Chronic Qualifiers: Diabetes mellitus type: type 2 Diabetes mellitus watermelon inspector insulin use: with watermelon inspector use Diabetes mellitus complication status: with skin complications Diabetes mellitus complication detail: with other skin ulcer Qualified Code(s): E11.622 - Type 2 diabetes mellitus with other skin ulcer; Z79.4 - alf (current) use of insulin (5) Hypertension Status: Chronic Qualifiers: Hypertension type: primary hypertension Qualified Code(s): I10 - Essential (primary) hypertension (6) Diabetic neuropathy Status: Chronic Qualifiers: Diabetes mellitus type: type 2 Diabetes mellitus complication detail: with other neurological complication Qualified Code(s): E11.49 - Type 2 diabetes mellitus with other diabetic neurological complication
[2021-09-10] MEDS: FLOMAX PO SCH (21:03)
[2021-09-10] MEDS: NEURONTIN CAP 400 MG PO SCH (21:03)
[2021-09-10] MEDS: SNACK - Diabetic Appropriate PO SCH (21:36)
[2021-09-11] MEDS: NovoLIN R (or HumuLIN R) SUBCUT SCH ×7 (05:27→23:26)
[2021-09-11] MEDS: DUONEB 0.5 MG/3 MG (3 mL) NEB SCH ×3 (05:31→20:50)
[2021-09-11 06:20] LABS: BASOPHILS # (AUTO) 0.4 X10^3/uL (0.0-0.1); BASOPHILS % (AUTO) 2.6 % (0.2-1.0); EOSINOPHILS # (AUTO) 0.5 x10^3/uL (0.0-0.2); HEMATOCRIT 33.9 % (42.0-54.0); HEMOGLOBIN 10.9 g/dL (13.5-18.0); LYMPHOCYTES # (AUTO) 4.9 X10^3/uL (1.3-2.9); LYMPHOCYTES % (AUTO) 32.1 % (21.0-51.0); MEAN CORPUSCULAR HEMOGLOBIN 26.5 pg (27.0-34.0); MEAN CORPUSCULAR VOLUME 82.7 fL (80.0-100.0); MEAN PLATELET VOLUME 8.9 fL (7.4-11.0); MONOCYTES # (AUTO) 1.1 x10^3/uL (0.3-0.8); MONOCYTES % (AUTO) 6.9 % (0.0-13.0); NEUTROPHILS # (AUTO) 8.4 x10^3/uL (2.2-4.8); NEUTROPHILS % (AUTO) 55.4 % (42.0-75.0); RED CELL DISTRIBUTION WIDTH 16.8 % (11.6-16.5); WHITE BLOOD COUNT 15.2 X10^3/uL (3.6-10.0)
[2021-09-11] MEDS: ZOSYN VIAL 3.375 GRAMS 3.375 G in NS 100 ML IV 100 ML IV SCH ×3 (06:26→23:26)
[2021-09-11] MEDS: GENTAMICIN TOPICAL CRM TOP SCH ×3 (06:27→21:30)
[2021-09-11 06:36] LABS: ALANINE AMINOTRANSFERASE 24 Units/L (12-78); ALBUMIN 2.2 g/dL (3.4-5.0); ALKALINE PHOSPHATASE 93 Units/L (46-116); ASPARTATE AMINO TRANSFERASE 24 Units/L (15-37); BLOOD UREA NITROGEN 22 mg/dL (7-18); CALCIUM 7.8 mg/dL (8.5-10.1); CHLORIDE 106 mmol/L (98-107); COR CA(FOR HYPOALB) 9.2 mg/dL (8.5-10.1); COR NA(FOR HYPERGLY) 143 mmol/L (136-145); CREATININE 0.82 mg/dL (0.70-1.30); SODIUM 140 mmol/L (136-145); TOTAL PROTEIN 6.4 g/dL (6.4-8.2); eGFR NON BLACK RACES > 60 (>60)
[2021-09-11] MEDS: COZAAR PO SCH (09:40)
[2021-09-11] MEDS: TOPAMAX TAB 100 MG PO SCH ×2 (09:40→21:28)
[2021-09-11] MEDS: XARELTO PO SCH ×2 (09:40→21:28)
[2021-09-11] MEDS: LANTUS SC SCH (09:40)
[2021-09-11] MEDS: NYSTATIN POWDER TOP SCH ×2 (09:40→21:27)
[2021-09-11] MEDS: NEURONTIN CAP 400 MG PO SCH ×2 (09:40→21:27)
[2021-09-11] MEDS: MESALAMINE 1.2 GM PO SCH (09:41)
[2021-09-11] MEDS: NS 1,000 ML IV 1,000 ML IV SCH (09:42)
--- NOTE | 2021-09-11 11:04 | RAD ---
HISTORYsob, bilateral leg cellulitisSTUDYCHEST, 1 [id number] cardiomediastinal silhouette is widened but stable given rotation. Similar bilateral airspace opacities and congestion. No pneumothorax. The bony thorax appears intact.IMPRESSIONSimilar bilateral airspace opacities.Electronically signed by: GEOFF ANTOINE (Sep 11, 2021 11:04:01)
[2021-09-11] MEDS: NORCO 10/325 TAB PO PRN ×2 (12:13→22:30)
--- NOTE | 2021-09-11 14:40 | PCM.PROG ---
Progress Note - Progress Note for Day of Date of Exam: 09/11/21 - Subjective Subjective: WAS ADMITTED ON 09/06. HE IS BEING TREATED FOR BILATERAL LOWER LEG CELLULITIS, RHABDOMYOLYSIS, ACUTE BRONCHITIS, AND UNCONTROLLED DIABETES MELLITIS. TODAY, HE IS ALERT AND ORIENTED, LYING IN BED ON MORNING ROUNDS. HE CONTINUES WITH COMPLAINTS OF NUMBNESS TO THE RIGHT LEG AND FOOT, W ELL GENERALIZED WEAKNESS AND BODY ACHES TODAY. HE ALSO COMPLAINS OF SHORTNESS OF BREATH. HE DOES ADMIT TO SLIGHT IMPROVEMENT IN SYMPTOMS TODAY. ON EXAMINATION, HEART IS REGULAR IN RATE AND RHYTHM. BILATERAL LUNGS NOTED WITH DIMINISHED LUNG SOUNDS THROUGHOUT. ABDOMEN IS OBESE, SOFT, AND NON-TENDER WITH NORMAL BOWEL SOUNDS NOTED IN ALL QUADRANTS. LOWER EXTREMITIES CONTINUE WITH DIFFUSE 1+ EDEMA, SHALLOW ULCERATIONS/WOUNDS, STAGE II WOUNDS, DIFFUSE INDURATIONS WITH ERYTHEMA. HIS VITALS THIS MORNING ARE: 98.5-86-22-92%-174/79. LABS WERE OBTAINED. ABNORMAL LAB VALUES INCLUDE THE FOLLOWING: WBC 15.2, RBC 4.10, HGB 10.9, HCT 33.9, BUN 22, GLUCOSE 234, CALCIUM 7.8, ALBUMIN 2.2. BLOOD CULTURES ARE PENDING. A CHEST XRAY WAS OBTAINED AND REVEALED: cardiomediastinal silhouette is widened but stable given rotation. Similar bilateral airspace opacities and congestion. No pneumothorax. The bony thorax appears intact. HE IS CURRENTLY RECEIVING NORMAL SALINE AT KVO, ZOSYN 3.375G IV TID, DUONEBS TID, GENTAMICIN CREAM TID, OTBS ACHS, LANTUS 35 UNITS SC AM, HUMULIN R 10 UNITS TID WITH MEALS, NORCO 10/325MG PO Q6H PRN, COLACE PRN, MILK OF MAGNESIA PRN. HIS HOME MEDICATIONS OF NEURONTIN, COZAAR, XARELTO, FLOMAX, RESTORIX, TOPAMAX, AND ULTRAM PRN WERE ALSO RESUMED. PATIENT WILL HAVE DAILY WOUND CARE. PHYSICAL THERAPY WILL CONTINUE TO WORK WITH PATIENT. OTHERWISE, WE PLAN TO FOLLOW UP WITH AM LABS AND CONTINUE TO MONITOR. TIME SPENT ON CLINICAL ASSESSMENT, REVIEWING LABS AND IMAGING, DECISION MAKING, AND DOCUMENTATION GREATER THAN 45 MINUTES. - Past Medical Family Social History Past Med/Fam/Surg Hx: No changes since H&P Allergies: Allergies metformin Allergy (Verified 08/15/21 11:40) semaglutide [From Ozempic] Allergy (Verified 08/15/21 11:40) - Review of Systems ROS: No change since H&P - Vital Signs and I&O's Vital Signs: Temperature 98.5 F Pulse Rate [Right] 94 Pulse Rate 95 Respiratory Rate 18 Blood Pressure [Right Arm] 171/78 Blood Pressure 141/62 O2 Sat by Pulse Oximetry 93 Intake and Output: Intake & Output 09/09/21 09/10/21 09/11/21 09/12/21 11:59 11:59 11:59 11:59 Intake Total 2986 / 2986 1800 / 1800 3694 / 3694 Output Total 1625 / 1625 1775 / 1775 3525 / 3525 Balance 1361 / 1361 169 / 169 - Physical Exam Oriented: Normal Eyes: Normal Ear: Normal Nose: Normal Throat: Normal Respiratory: Generalized, Diminished Cardiovascular: Normal, Edema (2+ PITTING EDEMA ) : Normal Auscultation: Bowel Sounds: Normal Tenderness: Normal Skin: Red, Tender, Hot, Wound Musculoskeletal: Normal Psychiatric: Normal Mood Description: Calm Affect: Normal Speech Pattern: Clear, Appropriate - Laboratory and Diagnostics Result Diagrams: 09/11/21 05:35 09/11/21 05:35 Labs: 09/06/21 07:52 Blood Blood Culture - Preliminary 09/06/21 07:26 Blood Blood Culture - Preliminary Laboratory WBC 15.2 X10^3/uL (3.6-10.0) H 09/11/21 05:35 RBC 4.10 X10^6/uL (4.7-6.0) L 09/11/21 05:35 Hgb 10.9 g/dL (13.5-18.0) L 09/11/21 05:35 Hct 33.9 % (42.0-54.0) L 09/11/21 05:35 MCV 82.7 fL (80.0-100.0) 09/11/21 05:35 MCH 26.5 pg (27.0-34.0) L 09/11/21 05:35 MCHC 32.0 g/dL (33.0-35.0) L 09/11/21 05:35 RDW 16.8 % (11.6-16.5) H 09/11/21 05:35 Plt Count 357 X10^3/uL (150.0-450.0) 09/11/21 05:35 Plt Count Comment Adequate (ADEQUATE) 09/06/21 07:26 MPV 8.9 fL (7.4-11.0) 09/11/21 05:35 Neut % (Auto) 55.4 % (42.0-75.0) 09/11/21 05:35 Lymph % (Auto) 32.1 % (21.0-51.0) 09/11/21 05:35 [facility] % (Auto) 6.9 % (0.0-13.0) 09/11/21 05:35 Eos % (Auto) 3.0 % (0.9-2.9) H 09/11/21 05:35 Baso % (Auto) 2.6 % (0.2-1.0) H 09/11/21 05:35 Neut # (Auto) 8.4 x10^3/uL (2.2-4.8) H 09/11/21 05:35 Lymph # (Auto) 4.9 X10^3/uL (1.3-2.9) H 09/11/21 05:35 [facility] # (Auto) 1.1 x10^3/uL (0.3-0.8) H 09/11/21 05:35 Eos # (Auto) 0.5 x10^3/uL (0.0-0.2) H 09/11/21 05:35 Baso # (Auto) 0.4 X10^3/uL (0.0-0.1) H 09/11/21 05:35 Absolute Nucleated RBC 0.0 /100WBC 09/11/21 05:35 Total Counted 100 09/06/21 07:26 Neutrophils % (Manual) 65 % (39-76) 09/06/21 07:26 Band Neutrophils % 19 % (0-10) H 09/06/21 07:26 Lymphocytes % (Manual) 10 % (13-43) L 09/06/21 07:26 Monocytes % (Manual) 4 % (4-9) 09/06/21 07:26 Metamyelocytes % 2 09/06/21 07:26 Plt Morphology Comment Normal (NORMAL) 09/06/21 07:26 RBC Morphology Abnormal (NORMAL) 09/06/21 07:26 Hypochromasia Slight A 09/06/21 07:26 Tear Drop Cells Slight 09/06/21 07:26 Sodium 140 mmol/L (136-145) 09/11/21 05:35 Corrected Sodium 143 mmol/L (136-145) 09/11/21 05:35 Potassium 4.5 mmol/L (3.5-5.1) 09/11/21 05:35 Chloride 106 mmol/L (98-107) 09/11/21 05:35 Carbon Dioxide 26.0 mmol/L (21-32) 09/11/21 05:35 BUN 22 mg/dL (7-18) H 09/11/21 05:35 Creatinine 0.82 mg/dL (0.70-1.30) 09/11/21 05:35 Est GFR (MDRD) Af Amer > 60 (>60) 09/11/21 05:35 Est GFR (MDRD) Non-Af > 60 (>60) 09/11/21 05:35 Glucose 234 mg/dL (65-99) H 09/11/21 05:35 POC Glucose (mg/dL) 279 mg/dL (65-99) H 09/11/21 11:46 Lactic Acid 2.7 mmol/L (0.4-2.0) H 09/06/21 07:26 Calcium 7.8 mg/dL (8.5-10.1) L 09/11/21 05:35 Corrected Calcium 9.2 mg/dL (8.5-10.1) 09/11/21 05:35 Total Bilirubin 0.40 mg/dL (0.2-1.0) 09/11/21 05:35 AST 24 Units/L (15-37) 09/11/21 05:35 ALT 24 Units/L (12-78) 09/11/21 05:35 Alkaline Phosphatase 93 Units/L (46-116) 09/11/21 05:35 Creatine Kinase 72 Units/L (39-308) 09/10/21 04:45 CK-MB (CK-2) 7.5 ng/mL (0-4.0) H* 09/07/21 02:55 CK/CKMB % Calc 1.0 % (<4) 09/07/21 02:55 Troponin I High Sens 29.3 ng/L (4.0-60.0) 09/07/21 02:55 Total Protein 6.4 g/dL (6.4-8.2) 09/11/21 05:35 Albumin 2.2 g/dL (3.4-5.0) L 09/11/21 05:35 Globulin 4.2 g/dL (2.5-4.5) 09/11/21 05:35 Albumin/Globulin Ratio 0.5 Ratio (1.1-2.1) L 09/11/21 05:35 Specimen Type Catherized urine 09/06/21 07:26 Urine Color Yellow (YELLOW) 09/06/21 07:26 Urine Appearance Clear (CLEAR) 09/06/21 07:26 Urine pH 8.0 (5.0 - 8.0) 09/06/21 07:26 Ur Specific [place] 1.010 (1.000-1.030) 09/06/21 07:26 Urine Protein 1+ (NEGATIVE) 09/06/21 07:26 Urine Glucose (UA) 2+ (NEGATIVE) 09/06/21 07:26 Urine Ketones Negative (NEGATIVE) 09/06/21 07:26 Urine Occult Blood 1+ (NEGATIVE) 09/06/21 07:26 Urine Nitrite Negative (NEGATIVE) 09/06/21 07:26 Urine Bilirubin Negative (NEGATIVE) 09/06/21 07:26 Urine Urobilinogen Normal (NORMAL) 09/06/21 07:26 Ur Leukocyte Esterase Negative (NEGATIVE) 09/06/21 07:26 Urine RBC 0-2 /HPF (0-3) 09/06/21 07:26 Urine WBC None seen /HPF (0-5) 09/06/21 07:26 Ur Squamous Epith Cells Rare /HPF (NEGATIVE) 09/06/21 07:26 Urine Bacteria Negative /HPF (NEGATIVE) 09/06/21 07:26 Ur Culture Indicated? No/not indicated 09/06/21 07:26 SARS-CoV-2 (PCR) Negative (NEGATIVE) 09/06/21 09:55 Influenza Type A (PCR) Negative (NEGATIVE) 09/06/21 09:55 Influenza Type B (PCR) Negative (NEGATIVE) 09/06/21 09:55 RSV (PCR) Negative (NEGATIVE) 09/06/21 09:55 - Plan (1) Bilateral lower leg cellulitis Status: Acute Plan: WOUND CARE, NORMAL SALINE AT KVO, ZOSYN 3.375G IV TID, DUONEBS TID, GENTAMICIN CREAM TID, OTBS ACHS, LANTUS 35 UNITS SC AM, HUMULIN R 10 UNITS TID WITH MEALS, NORCO 10/325MG PO Q6H PRN. RESUME HOME MEDS. 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
[2021-09-11] MEDS: FLOMAX PO SCH (21:27)
[2021-09-11] MEDS: SNACK - Diabetic Appropriate PO SCH (21:27)
[2021-09-12] MEDS: NS 1,000 ML IV 1,000 ML IV SCH ×2 (04:54→13:58)
[2021-09-12] MEDS: ZOSYN VIAL 3.375 GRAMS 3.375 G in NS 100 ML IV 100 ML IV SCH ×3 (05:19→21:00)
[2021-09-12] MEDS: GENTAMICIN TOPICAL CRM TOP SCH ×3 (05:19→20:59)
[2021-09-12 05:41] LABS: BASOPHILS % (AUTO) 0.3 % (0.2-1.0); EOSINOPHILS # (AUTO) 0.6 x10^3/uL (0.0-0.2); EOSINOPHILS % (AUTO) 4.6 % (0.9-2.9); HEMATOCRIT 35.8 % (42.0-54.0); HEMOGLOBIN 11.6 g/dL (13.5-18.0); LYMPHOCYTES # (AUTO) 2.9 X10^3/uL (1.3-2.9); LYMPHOCYTES % (AUTO) 22.7 % (21.0-51.0); MEAN CORPUSCULAR HGB CONC 32.4 g/dL (33.0-35.0); MEAN CORPUSCULAR VOLUME 83.3 fL (80.0-100.0); MEAN PLATELET VOLUME 8.9 fL (7.4-11.0); MONOCYTES # (AUTO) 0.8 x10^3/uL (0.3-0.8); MONOCYTES % (AUTO) 6.3 % (0.0-13.0); NEUTROPHILS # (AUTO) 8.6 x10^3/uL (2.2-4.8); NEUTROPHILS % (AUTO) 66.1 % (42.0-75.0); RED CELL DISTRIBUTION WIDTH 16.6 % (11.6-16.5)
--- NOTE | 2021-09-12 05:44 | RAD ---
HISTORYSOB PMH: DM, HTN PSH: APPENDIX, ORTHO, GB, ABDSTUDYCHEST, 1 [id number] trachea is midline. The cardiac silhouette is mildly enlarged.. Bilateral airspace opacities unchanged. No pleural effusion or pneumothorax. The bony thorax is unremarkable.IMPRESSIONStable portable chest.Electronically signed by: Mitch You (Sep 12, 2021 05:42:52)
[2021-09-12 05:46] LABS: ALANINE AMINOTRANSFERASE 26 Units/L (12-78); ALBUMIN 2.4 g/dL (3.4-5.0); ALKALINE PHOSPHATASE 98 Units/L (46-116); ASPARTATE AMINO TRANSFERASE 22 Units/L (15-37); BLOOD UREA NITROGEN 22 mg/dL (7-18); CALCIUM 8.3 mg/dL (8.5-10.1); CARBON DIOXIDE 28.9 mmol/L (21-32); CHLORIDE 106 mmol/L (98-107); COR CA(FOR HYPOALB) 9.6 mg/dL (8.5-10.1); COR NA(FOR HYPERGLY) 143 mmol/L (136-145); CREATININE 0.89 mg/dL (0.70-1.30); SODIUM 140 mmol/L (136-145); TOTAL PROTEIN 6.9 g/dL (6.4-8.2); eGFR NON BLACK RACES > 60 (>60)
[2021-09-12] MEDS: NovoLIN R (or HumuLIN R) SUBCUT SCH ×7 (05:47→20:59)
[2021-09-12] MEDS: DUONEB 0.5 MG/3 MG (3 mL) NEB SCH ×3 (06:10→20:45)
[2021-09-12] MEDS: LANTUS SC SCH (09:27)
[2021-09-12] MEDS: COZAAR PO SCH (09:28)
[2021-09-12] MEDS: NEURONTIN CAP 400 MG PO SCH ×2 (09:28→20:43)
[2021-09-12] MEDS: TOPAMAX TAB 100 MG PO SCH ×2 (09:28→20:43)
[2021-09-12] MEDS: XARELTO PO SCH ×2 (09:28→20:43)
[2021-09-12] MEDS: MESALAMINE 1.2 GM PO SCH (09:28)
[2021-09-12] MEDS: NYSTATIN POWDER TOP SCH ×2 (09:29→20:44)
[2021-09-12] MEDS: NORCO 10/325 TAB PO PRN ×2 (09:36→21:01)
--- NOTE | 2021-09-12 09:46 | RAD ---
HISTORYRIGHT KNEE PAINSTUDYKNEE RIGHT three viewsCOMPARISONNoneFINDINGSDiffuse soft tissue edema is noted as disruption of the fat/muscle interface. There is also a suprapatellar recess joint effusion.Degenerative changes involve all 3 knee compartments. This is probably osteoarthritis but could be pyrophosphate arthropathy. Calcification is seen in lateral meniscus.No fracture or dislocation. Ossifications are seen in the joint anteriorly, posteriorly, and medially representing loose bodies. This is frequently associated with osteoarthritis.IMPRESSION1. Degenerative changes, probably osteoarthritis2. Soft tissue edema with joint effusionElectronically signed by: Kevin Bermeo (Sep 12, 2021 09:45:16)
--- NOTE | 2021-09-12 09:49 | PCM.PROG ---
Progress Note - Progress Note for Day of Date of Exam: 09/12/21 - Subjective Subjective: WAS ADMITTED ON 09/06. HE IS BEING TREATED FOR BILATERAL LOWER LEG CELLULITIS, RHABDOMYOLYSIS, ACUTE BRONCHITIS, AND UNCONTROLLED DIABETES MELLITIS. TODAY, HE IS ALERT AND ORIENTED, LYING IN BED ON MORNING ROUNDS. HE CONTINUES WITH COMPLAINTS OF PAIN AND DECREASED RANGE OF MOTION TO TH E RIGHT LEG AND RIGHT KNEE, WELL GENERALIZED WEAKNESS AND BODY ACHES TODAY. HON EXAMINATION, HEART IS REGULAR IN RATE AND RHYTHM. BILATERAL LUNGS NOTED WITH DIMINISHED LUNG SOUNDS THROUGHOUT. ABDOMEN IS OBESE, SOFT, AND NON- TENDER WITH NORMAL BOWEL SOUNDS NOTED IN ALL QUADRANTS. LOWER EXTREMITIES CONTINUE WITH DIFFUSE 1+ EDEMA, SHALLOW ULCERATIONS/WOUNDS, STAGE II WOUNDS, DIFFUSE INDURATIONS WITH ERYTHEMA. HIS VITALS THIS MORNING ARE: 97.8-82-22-95%-138/69. LABS WERE OBTAINED. ABNORMAL LAB VALUES INCLUDE THE FOLLOWING: WBC 13.0, RBC 4.30, HGB 11.6, HCT 35.8, BUN 22, GLUCOSE 227, CALCIUM 8.3, ALBUMIN 2.4. BLOOD CULTURES ARE PENDING. A CHEST XRAY WAS OBTAINED AND REVEALED: The trachea is midline. The cardiac silhouette is mildly enlarged.. Bilateral airspace opacities unchanged. No pleural effusion or pneumothorax. The bony thorax is unremarkable. HE IS CURRENTLY RECEIVING NORMAL SALINE AT KVO, ZOSYN 3.375G IV TID, DUONEBS TID, GENTAMICIN CREAM TID, OTBS ACHS, LANTUS 35 UNITS SC AM, HUMULIN R 10 UNITS TID WITH MEALS, NORCO 10/325MG PO Q6H PRN, COLACE PRN, MILK OF MAGNESIA PRN. HIS HOME MEDICATIONS OF NEURONTIN, COZAAR, XARELTO, FLOMAX, RESTORIX, TOPAMAX, AND ULTRAM PRN WERE ALSO RESUMED.WE WILL OBTAIN A RIGHT KNEE XRAY TODAY. PATIENT WILL HAVE DAILY WOUND CARE. PHYSICAL THERAPY WILL CONTINUE TO WORK WITH PATIENT. OTHERWISE, WE PLAN TO FOLLOW UP WITH AM LABS AND CONTINUE TO MONITOR. TIME SPENT ON CLINICAL ASSESSMENT, REVIEWING LABS AND IMAGING, DECISION MAKING, AND DOCUMENTATION GREATER THAN 45 MINUTES. - Past Medical Family Social History Past Med/Fam/Surg Hx: No changes since H&P Allergies: Allergies metformin Allergy (Verified 08/15/21 11:40) semaglutide [From Ozempic] Allergy (Verified 08/15/21 11:40) - Review of Systems ROS: No change since H&P - Vital Signs and I&O's Vital Signs: Temperature 97.8 F Pulse Rate [Right] 82 Pulse Rate 95 Respiratory Rate 22 Blood Pressure [Right Arm] 138/69 Blood Pressure 141/62 O2 Sat by Pulse Oximetry 95 Intake and Output: Intake & Output 09/09/21 09/10/21 09/11/21 09/12/21 11:59 11:59 11:59 11:59 Intake Total 2986 / 2986 1800 / 1800 3694 / 3694 1628 / 1628 Output Total 1625 / 1625 1775 / 1775 3525 / 3525 2650 / 2650 Balance 1361 / 1361 169 / 169 -1022 / -1022 - Physical Exam Oriented: Normal Eyes: Normal Ear: Normal Nose: Normal Throat: Normal Respiratory: Generalized, Diminished Cardiovascular: Normal, Edema (2+ PITTING EDEMA ) : Normal Auscultation: Bowel Sounds: Normal Tenderness: Normal Skin: Red, Tender, Hot, Wound Musculoskeletal: Normal Psychiatric: Normal Mood Description: Calm Affect: Normal Speech Pattern: Clear, Appropriate - Laboratory and Diagnostics Result Diagrams: 09/12/21 04:45 09/12/21 04:45 Labs: 09/06/21 07:52 Blood Blood Culture - Preliminary 09/06/21 07:26 Blood Blood Culture - Preliminary Laboratory WBC 13.0 X10^3/uL (3.6-10.0) H 09/12/21 04:45 RBC 4.30 X10^6/uL (4.7-6.0) L 09/12/21 04:45 Hgb 11.6 g/dL (13.5-18.0) L 09/12/21 04:45 Hct 35.8 % (42.0-54.0) L 09/12/21 04:45 MCV 83.3 fL (80.0-100.0) 09/12/21 04:45 MCH 27.0 pg (27.0-34.0) 09/12/21 04:45 MCHC 32.4 g/dL (33.0-35.0) L 09/12/21 04:45 RDW 16.6 % (11.6-16.5) H 09/12/21 04:45 Plt Count 401 X10^3/uL (150.0-450.0) 09/12/21 04:45 Plt Count Comment Adequate (ADEQUATE) 09/06/21 07:26 MPV 8.9 fL (7.4-11.0) 09/12/21 04:45 Neut % (Auto) 66.1 % (42.0-75.0) 09/12/21 04:45 Lymph % (Auto) 22.7 % (21.0-51.0) 09/12/21 04:45 [place] % (Auto) 6.3 % (0.0-13.0) 09/12/21 04:45 Eos % (Auto) 4.6 % (0.9-2.9) H 09/12/21 04:45 Baso % (Auto) 0.3 % (0.2-1.0) 09/12/21 04:45 Neut # (Auto) 8.6 x10^3/uL (2.2-4.8) H 09/12/21 04:45 Lymph # (Auto) 2.9 X10^3/uL (1.3-2.9) 09/12/21 04:45 [place] # (Auto) 0.8 x10^3/uL (0.3-0.8) 09/12/21 04:45 Eos # (Auto) 0.6 x10^3/uL (0.0-0.2) H 09/12/21 04:45 Baso # (Auto) 0.0 X10^3/uL (0.0-0.1) 09/12/21 04:45 Absolute Nucleated RBC 0.0 /100WBC 09/12/21 04:45 Total Counted 100 09/06/21 07:26 Neutrophils % (Manual) 65 % (39-76) 09/06/21 07:26 Band Neutrophils % 19 % (0-10) H 09/06/21 07:26 Lymphocytes % (Manual) 10 % (13-43) L 09/06/21 07:26 Monocytes % (Manual) 4 % (4-9) 09/06/21 07:26 Metamyelocytes % 2 09/06/21 07:26 Plt Morphology Comment Normal (NORMAL) 09/06/21 07:26 RBC Morphology Abnormal (NORMAL) 09/06/21 07:26 Hypochromasia Slight A 09/06/21 07:26 Tear Drop Cells Slight 09/06/21 07:26 Sodium 140 mmol/L (136-145) 09/12/21 04:45 Corrected Sodium 143 mmol/L (136-145) 09/12/21 04:45 Potassium 4.5 mmol/L (3.5-5.1) 09/12/21 04:45 Chloride 106 mmol/L (98-107) 09/12/21 04:45 Carbon Dioxide 28.9 mmol/L (21-32) 09/12/21 04:45 BUN 22 mg/dL (7-18) H 09/12/21 04:45 Creatinine 0.89 mg/dL (0.70-1.30) 09/12/21 04:45 Est GFR (MDRD) Af Amer > 60 (>60) 09/12/21 04:45 Est GFR (MDRD) Non-Af > 60 (>60) 09/12/21 04:45 Glucose 227 mg/dL (65-99) H 09/12/21 04:45 POC Glucose (mg/dL) 204 mg/dL (65-99) H 09/12/21 05:39 Lactic Acid 2.7 mmol/L (0.4-2.0) H 09/06/21 07:26 Calcium 8.3 mg/dL (8.5-10.1) L 09/12/21 04:45 Corrected Calcium 9.6 mg/dL (8.5-10.1) 09/12/21 04:45 Total Bilirubin 0.30 mg/dL (0.2-1.0) 09/12/21 04:45 AST 22 Units/L (15-37) 09/12/21 04:45 ALT 26 Units/L (12-78) 09/12/21 04:45 Alkaline Phosphatase 98 Units/L (46-116) 09/12/21 04:45 Creatine Kinase 72 Units/L (39-308) 09/10/21 04:45 CK-MB (CK-2) 7.5 ng/mL (0-4.0) H* 09/07/21 02:55 CK/CKMB % Calc 1.0 % (<4) 09/07/21 02:55 Troponin I High Sens 29.3 ng/L (4.0-60.0) 09/07/21 02:55 Total Protein 6.9 g/dL (6.4-8.2) 09/12/21 04:45 Albumin 2.4 g/dL (3.4-5.0) L 09/12/21 04:45 Globulin 4.5 g/dL (2.5-4.5) 09/12/21 04:45 Albumin/Globulin Ratio 0.5 Ratio (1.1-2.1) L 09/12/21 04:45 Specimen Type Catherized urine 09/06/21 07:26 Urine Color Yellow (YELLOW) 09/06/21 07:26 Urine Appearance Clear (CLEAR) 09/06/21 07:26 Urine pH 8.0 (5.0 - 8.0) 09/06/21 07:26 Ur Specific [place] 1.010 (1.000-1.030) 09/06/21 07:26 Urine Protein 1+ (NEGATIVE) 09/06/21 07:26 Urine Glucose (UA) 2+ (NEGATIVE) 09/06/21 07:26 Urine Ketones Negative (NEGATIVE) 09/06/21 07:26 Urine Occult Blood 1+ (NEGATIVE) 09/06/21 07:26 Urine Nitrite Negative (NEGATIVE) 09/06/21 07:26 Urine Bilirubin Negative (NEGATIVE) 09/06/21 07:26 Urine Urobilinogen Normal (NORMAL) 09/06/21 07:26 Ur Leukocyte Esterase Negative (NEGATIVE) 09/06/21 07:26 Urine RBC 0-2 /HPF (0-3) 09/06/21 07:26 Urine WBC None seen /HPF (0-5) 09/06/21 07:26 Ur Squamous Epith Cells Rare /HPF (NEGATIVE) 09/06/21 07:26 Urine Bacteria Negative /HPF (NEGATIVE) 09/06/21 07:26 Ur Culture Indicated? No/not indicated 09/06/21 07:26 SARS-CoV-2 (PCR) Negative (NEGATIVE) 09/06/21 09:55 Influenza Type A (PCR) Negative (NEGATIVE) 09/06/21 09:55 Influenza Type B (PCR) Negative (NEGATIVE) 09/06/21 09:55 RSV (PCR) Negative (NEGATIVE) 09/06/21 09:55 - Plan (1) Bilateral lower leg cellulitis Status: Acute Plan: WOUND CARE, NORMAL SALINE AT KVO, ZOSYN 3.375G IV TID, DUONEBS TID, GE NTAMICIN CREAM TID, OTBS ACHS, LANTUS 35 UNITS SC AM, HUMULIN R 10 UNITS TID WITH MEALS, NORCO 10/325MG PO Q6H PRN. RESUME HOME MEDS. 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 Diabetes mellitus complication status: with skin complications Diabetes mellitus complication detail: with other skin ulcer Qualified Code(s): E11.622 - Type 2 diabetes mellitus with other skin ulcer; Z79.4 - group home (current) use of insulin (5) Hypertension Status: Chronic Qualifiers: Hypertension type: primary hypertension Qualified Code(s): I10 - Essential (primary) hypertension (6) Diabetic neuropathy Status: Chronic Qualifiers: Diabetes mellitus type: type 2 Diabetes mellitus complication detail: with other neurological complication Qualified Code(s): E11.49 - Type 2 diabetes mellitus with other diabetic neurological complication
[2021-09-12] MEDS: ULTRAM PO PRN (14:23)
[2021-09-12] MEDS: SNACK - Diabetic Appropriate PO SCH (20:43)
[2021-09-12] MEDS: FLOMAX PO SCH (20:44)
[2021-09-12] MEDS: RESTORIL CAP 15 MG PO PRN (21:01)
[2021-09-13] MEDS: DUONEB 0.5 MG/3 MG (3 mL) NEB SCH ×3 (04:55→21:00)
[2021-09-13] MEDS: ZOSYN VIAL 3.375 GRAMS 3.375 G in NS 100 ML IV 100 ML IV SCH ×3 (05:04→21:25)
[2021-09-13] MEDS: GENTAMICIN TOPICAL CRM TOP SCH ×3 (05:04→21:26)
[2021-09-13] MEDS: NS 1,000 ML IV 1,000 ML IV SCH ×3 (05:04→14:33)
[2021-09-13] MEDS: NovoLIN R (or HumuLIN R) SUBCUT SCH ×7 (05:44→21:26)
[2021-09-13 06:14] LABS: ALANINE AMINOTRANSFERASE 23 Units/L (12-78); ALBUMIN 2.3 g/dL (3.4-5.0); ALKALINE PHOSPHATASE 108 Units/L (46-116); ASPARTATE AMINO TRANSFERASE 22 Units/L (15-37); BLOOD UREA NITROGEN 23 mg/dL (7-18); CALCIUM 8.1 mg/dL (8.5-10.1); CARBON DIOXIDE 29.5 mmol/L (21-32); CHLORIDE 105 mmol/L (98-107); COR CA(FOR HYPOALB) 9.5 mg/dL (8.5-10.1); COR NA(FOR HYPERGLY) 143 mmol/L (136-145); SODIUM 140 mmol/L (136-145); TOTAL PROTEIN 6.7 g/dL (6.4-8.2); eGFR NON BLACK RACES > 60 (>60)
[2021-09-13 06:20] LABS: BASOPHILS # (AUTO) 0.2 X10^3/uL (0.0-0.1); BASOPHILS % (AUTO) 1.6 % (0.2-1.0); EOSINOPHILS # (AUTO) 0.6 x10^3/uL (0.0-0.2); EOSINOPHILS % (AUTO) 3.8 % (0.9-2.9); HEMATOCRIT 36.5 % (42.0-54.0); HEMOGLOBIN 11.6 g/dL (13.5-18.0); LYMPHOCYTES % (AUTO) 25.9 % (21.0-51.0); MEAN CORPUSCULAR HEMOGLOBIN 26.4 pg (27.0-34.0); MEAN CORPUSCULAR HGB CONC 31.7 g/dL (33.0-35.0); MEAN CORPUSCULAR VOLUME 83.3 fL (80.0-100.0); MEAN PLATELET VOLUME 8.8 fL (7.4-11.0); MONOCYTES # (AUTO) 0.9 x10^3/uL (0.3-0.8); NEUTROPHILS # (AUTO) 9.8 x10^3/uL (2.2-4.8); NEUTROPHILS % (AUTO) 62.7 % (42.0-75.0); RED BLOOD COUNT 4.38 X10^6/uL (4.7-6.0); RED CELL DISTRIBUTION WIDTH 17.1 % (11.6-16.5); WHITE BLOOD COUNT 15.6 X10^3/uL (3.6-10.0)
[2021-09-13] MEDS: LANTUS SC SCH (08:14)
[2021-09-13] MEDS: XARELTO PO SCH ×2 (08:15→21:24)
[2021-09-13] MEDS: NEURONTIN CAP 400 MG PO SCH ×2 (08:15→21:24)
[2021-09-13] MEDS: COZAAR PO SCH (08:15)
[2021-09-13] MEDS: NORCO 10/325 TAB PO PRN ×2 (08:15→21:27)
[2021-09-13] MEDS: TOPAMAX TAB 100 MG PO SCH ×2 (08:16→21:25)
[2021-09-13] MEDS: NYSTATIN POWDER TOP SCH ×2 (08:22→21:26)
[2021-09-13] MEDS: MESALAMINE 1.2 GM PO SCH (08:22)
[2021-09-13] MEDS ORDERED: MARCAINE 0.25% INJ ONE (08:35)
[2021-09-13] MEDS ORDERED: KENALOG INJ 40 MG IM ONE (08:35)
--- NOTE | 2021-09-13 10:03 | PCM.PROG ---
Progress Note - Progress Note for Day of Date of Exam: 09/13/21 - Subjective Subjective: WAS ADMITTED ON 09/06. HE IS BEING TREATED FOR BILATERAL LOWER LEG CELLULITIS, RHABDOMYOLYSIS, ACUTE BRONCHITIS, AND UNCONTROLLED DIABETES MELLITIS. TODAY, HE IS ALERT AND ORIENTED, LYING IN BED ON MORNING ROUNDS. HE CONTINUES WITH COMPLAINTS OF PAIN AND DECREASED RANGE OF MOTION TO TH E RIGHT LEG AND RIGHT KNEE, WELL GENERALIZED WEAKNESS AND BODY ACHES TODAY. HE REQUIRES MAXIMUM ASSISTANCE TO SIT ON THE SIDE OF THE BED. ON EXAMINATION, HEART IS REGULAR IN RATE AND RHYTHM. BILATERAL LUNGS NOTED WITH DIMINISHED LUNG SOUNDS THROUGHOUT. ABDOMEN IS OBESE, SOFT, AND NON-TENDER WITH NORMAL BOWEL SOUNDS NOTED IN ALL QUADRANTS. LOWER EXTREMITIES CONTINUE WITH DIFFUSE 1+ EDEMA, SHALLOW ULCERATIONS/WOUNDS, STAGE II WOUNDS, DIFFUSE INDURATIONS WITH ERYTHEMA. HIS VITALS THIS MORNING ARE: 99.0-94-24-90%-138/64. LABS WERE OBTAINED. ABNORMAL LAB VALUES INCLUDE THE FOLLOWING: WBC 15.6, RBC 4.38, HGB 11.6, HCT 36.5, BUN 23, GLUCOSE 207, CALCIUM 8.1, ALBUMIN 2.3. BLOOD CULTURES ARE PENDING. RIGHT KNEE XRAY WAS OBTAINED YESTERDAY AND REVEALED: 1. Degenerative changes, probably osteoarthritis 2. Soft tissue edema with joint effusion. HE IS CURRENTLY RECEIVING NORMAL SALINE AT KVO, ZOSYN 3.375G IV TID, DUONEBS TID, GENTAMICIN CREAM TID, OTBS ACHS, LANTUS 35 UNITS SC AM, HUMULIN R 1 0 UNITS TID WITH MEALS, NORCO 10/325MG PO Q6H PRN, COLACE PRN, MILK OF MAGNESIA PRN. HIS HOME MEDICATIONS OF NEURONTIN, COZAAR, XARELTO, FLOMAX, RESTORIL, TOPAMAX, AND ULTRAM PRN WERE ALSO RESUMED. TODAY, WE WILL GIVEN THE PATIENT A KENALOG/MARCAINE INJECTION TO THE RIGHT KNEE. PATIENT WILL HAVE DAILY WOUND CARE. PHYSICAL THERAPY WILL CONTINUE TO WORK WITH PATIENT. OTHERWISE, WE PLAN TO FOLLOW UP WITH AM LABS AND CONTINUE TO MONITOR. TIME SPENT ON CLINICAL ASSESSMENT, REVIEWING LABS AND IMAGING, DECISION MAKING, AND DOCUMENTATION GREATER THAN 45 MINUTES. - Past Medical Family Social History Past Med/Fam/Surg Hx: No changes since H&P Allergies: Allergies metformin Allergy (Verified 08/15/21 11:40) semaglutide [From Ozempic] Allergy (Verified 08/15/21 11:40) - Review of Systems ROS: No change since H&P - Vital Signs and I&O's Vital Signs: Temperature 99.0 F Pulse Rate [Right] 94 Pulse Rate 86 Respiratory Rate 20 Blood Pressure [Right Arm] 138/64 Blood Pressure 141/62 O2 Sat by Pulse Oximetry 90 Intake and Output: Intake & Output 09/10/21 09/11/21 09/12/21 09/13/21 11:59 11:59 11:59 11:59 Intake Total 1800 / 1800 3694 / 3694 1628 / 1628 2815 / 2815 Output Total 1775 / 1775 3525 / 3525 2650 / 2650 2425 / 2425 Balance 169 / 169 -1022 / -1022 390 / 390 - Physical Exam Oriented: Normal Eyes: Normal Ear: Normal Nose: Normal Throat: Normal Respiratory: Generalized, Diminished Cardiovascular: Normal, Edema (1+ PITTING EDEMA ) : Normal Auscultation: Bowel Sounds: Normal Palpation: Normal Tenderness: Normal Skin: Red, Tender, Hot, Wound Musculoskeletal: Normal Psychiatric: Normal Mood Description: Calm Affect: Normal Speech Pattern: Clear, Appropriate - Laboratory and Diagnostics Result Diagrams: 09/13/21 05:21 09/13/21 05:21 Labs: 09/06/21 07:52 Blood Blood Culture - Final 09/06/21 07:26 Blood Blood Culture - Final Laboratory WBC 15.6 X10^3/uL (3.6-10.0) H 09/13/21 05:21 RBC 4.38 X10^6/uL (4.7-6.0) L 09/13/21 05:21 Hgb 11.6 g/dL (13.5-18.0) L 09/13/21 05:21 Hct 36.5 % (42.0-54.0) L 09/13/21 05:21 MCV 83.3 fL (80.0-100.0) 09/13/21 05:21 MCH 26.4 pg (27.0-34.0) L 09/13/21 05:21 MCHC 31.7 g/dL (33.0-35.0) L 09/13/21 05:21 RDW 17.1 % (11.6-16.5) H 09/13/21 05:21 Plt Count 390 X10^3/uL (150.0-450.0) 09/13/21 05:21 Plt Count Comment Adequate (ADEQUATE) 09/06/21 07:26 MPV 8.8 fL (7.4-11.0) 09/13/21 05:21 Neut % (Auto) 62.7 % (42.0-75.0) 09/13/21 05:21 Lymph % (Auto) 25.9 % (21.0-51.0) 09/13/21 05:21 [place] % (Auto) 6.0 % (0.0-13.0) 09/13/21 05:21 Eos % (Auto) 3.8 % (0.9-2.9) H 09/13/21 05:21 Baso % (Auto) 1.6 % (0.2-1.0) H 09/13/21 05:21 Neut # (Auto) 9.8 x10^3/uL (2.2-4.8) H 09/13/21 05:21 Lymph # (Auto) 4.0 X10^3/uL (1.3-2.9) H 09/13/21 05:21 [place] # (Auto) 0.9 x10^3/uL (0.3-0.8) H 09/13/21 05:21 Eos # (Auto) 0.6 x10^3/uL (0.0-0.2) H 09/13/21 05:21 Baso # (Auto) 0.2 X10^3/uL (0.0-0.1) H 09/13/21 05:21 Absolute Nucleated RBC 0.1 /100WBC 09/13/21 05:21 Total Counted 100 09/06/21 07:26 Neutrophils % (Manual) 65 % (39-76) 09/06/21 07:26 Band Neutrophils % 19 % (0-10) H 09/06/21 07:26 Lymphocytes % (Manual) 10 % (13-43) L 09/06/21 07:26 Monocytes % (Manual) 4 % (4-9) 09/06/21 07:26 Metamyelocytes % 2 09/06/21 07:26 Plt Morphology Comment Normal (NORMAL) 09/06/21 07:26 RBC Morphology Abnormal (NORMAL) 09/06/21 07:26 Hypochromasia Slight A 09/06/21 07:26 Tear Drop Cells Slight 09/06/21 07:26 Sodium 140 mmol/L (136-145) 09/13/21 05:21 Corrected Sodium 143 mmol/L (136-145) 09/13/21 05:21 Potassium 4.6 mmol/L (3.5-5.1) 09/13/21 05:21 Chloride 105 mmol/L (98-107) 09/13/21 05:21 Carbon Dioxide 29.5 mmol/L (21-32) 09/13/21 05:21 BUN 23 mg/dL (7-18) H 09/13/21 05:21 Creatinine 0.90 mg/dL (0.70-1.30) 09/13/21 05:21 Est GFR (MDRD) Af Amer > 60 (>60) 09/13/21 05:21 Est GFR (MDRD) Non-Af > 60 (>60) 09/13/21 05:21 Glucose 207 mg/dL (65-99) H 09/13/21 05:21 POC Glucose (mg/dL) 213 mg/dL (65-99) H 09/13/21 05:12 Lactic Acid 2.7 mmol/L (0.4-2.0) H 09/06/21 07:26 Calcium 8.1 mg/dL (8.5-10.1) L 09/13/21 05:21 Corrected Calcium 9.5 mg/dL (8.5-10.1) 09/13/21 05:21 Total Bilirubin 0.30 mg/dL (0.2-1.0) 09/13/21 05:21 AST 22 Units/L (15-37) 09/13/21 05:21 ALT 23 Units/L (12-78) 09/13/21 05:21 Alkaline Phosphatase 108 Units/L (46-116) 09/13/21 05:21 Creatine Kinase 72 Units/L (39-308) 09/10/21 04:45 CK-MB (CK-2) 7.5 ng/mL (0-4.0) H* 09/07/21 02:55 CK/CKMB % Calc 1.0 % (<4) 09/07/21 02:55 Troponin I High Sens 29.3 ng/L (4.0-60.0) 09/07/21 02:55 Total Protein 6.7 g/dL (6.4-8.2) 09/13/21 05:21 Albumin 2.3 g/dL (3.4-5.0) L 09/13/21 05:21 Globulin 4.4 g/dL (2.5-4.5) 09/13/21 05:21 Albumin/Globulin Ratio 0.5 Ratio (1.1-2.1) L 09/13/21 05:21 Specimen Type Catherized urine 09/06/21 07:26 Urine Color Yellow (YELLOW) 09/06/21 07:26 Urine Appearance Clear (CLEAR) 09/06/21 07:26 Urine pH 8.0 (5.0 - 8.0) 09/06/21 07:26 Ur Specific [place] 1.010 (1.000-1.030) 09/06/21 07:26 Urine Protein 1+ (NEGATIVE) 09/06/21 07:26 Urine Glucose (UA) 2+ (NEGATIVE) 09/06/21 07:26 Urine Ketones Negative (NEGATIVE) 09/06/21 07:26 Urine Occult Blood 1+ (NEGATIVE) 09/06/21 07:26 Urine Nitrite Negative (NEGATIVE) 09/06/21 07:26 Urine Bilirubin Negative (NEGATIVE) 09/06/21 07:26 Urine Urobilinogen Normal (NORMAL) 09/06/21 07:26 Ur Leukocyte Esterase Negative (NEGATIVE) 09/06/21 07:26 Urine RBC 0-2 /HPF (0-3) 09/06/21 07:26 Urine WBC None seen /HPF (0-5) 09/06/21 07:26 Ur Squamous Epith Cells Rare /HPF (NEGATIVE) 09/06/21 07:26 Urine Bacteria Negative /HPF (NEGATIVE) 09/06/21 07:26 Ur Culture Indicated? No/not indicated 09/06/21 07:26 SARS-CoV-2 (PCR) Negative (NEGATIVE) 09/06/21 09:55 Influenza Type A (PCR) Negative (NEGATIVE) 09/06/21 09:55 Influenza Type B (PCR) Negative (NEGATIVE) 09/06/21 09:55 RSV (PCR) Negative (NEGATIVE) 09/06/21 09:55 - Plan (1) Bilateral lower leg cellulitis Status: Acute Plan: WOUND CARE, NORMAL SALINE AT KVO, ZOSYN 3.375G IV TID, DUONEBS TID, GENTAMICIN CREAM TID, OTBS ACHS, LANTUS 35 UNITS SC AM, HUMULIN R 10 UNITS TID WITH MEALS, NORCO 10/325MG PO Q6H PRN. RESUME HOME MEDS. 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 Diabetes mellitus complication status: with skin complications Diabetes mellitus complication detail: with other skin ulcer Qualified Code(s): E11.622 - Type 2 diabetes mellitus with other skin ulcer; Z79.4 - USP (current) use of insulin (6) Hypertension Status: Chronic Qualifiers: Hypertension type: primary hypertension Qualified Code(s): I10 - Essential (primary) hypertension (7) Diabetic neuropathy Status: Chronic Qualifiers: Diabetes mellitus type: type 2 Diabetes mellitus complication detail: with other neurological complication Qualified Code(s): E11.49 - Type 2 diabetes mellitus with other diabetic neurological complication
[2021-09-13 15:32] VITALS: BMI 48.7
[2021-09-13] MEDS: SNACK - Diabetic Appropriate PO SCH (20:24)
[2021-09-13] MEDS: RESTORIL CAP 15 MG PO PRN (21:24)
[2021-09-13] MEDS: FLOMAX PO SCH (21:24)
[2021-09-14] MEDS: NS 1,000 ML IV 1,000 ML IV SCH ×2 (04:52→15:50)
[2021-09-14] MEDS: ZOSYN VIAL 3.375 GRAMS 3.375 G in NS 100 ML IV 100 ML IV SCH ×3 (05:13→22:41)
[2021-09-14] MEDS: GENTAMICIN TOPICAL CRM TOP SCH ×3 (05:13→22:39)
[2021-09-14 05:29] LABS: BASOPHILS % (AUTO) 0.2 % (0.2-1.0); EOSINOPHILS # (AUTO) 0.4 x10^3/uL (0.0-0.2); HEMATOCRIT 35.2 % (42.0-54.0); HEMOGLOBIN 11.3 g/dL (13.5-18.0); LYMPHOCYTES # (AUTO) 2.9 X10^3/uL (1.3-2.9); MEAN CORPUSCULAR HEMOGLOBIN 26.6 pg (27.0-34.0); MEAN CORPUSCULAR HGB CONC 32.1 g/dL (33.0-35.0); MEAN CORPUSCULAR VOLUME 82.8 fL (80.0-100.0); MEAN PLATELET VOLUME 8.7 fL (7.4-11.0); MONOCYTES # (AUTO) 0.7 x10^3/uL (0.3-0.8); MONOCYTES % (AUTO) 5.4 % (0.0-13.0); NEUTROPHILS # (AUTO) 8.2 x10^3/uL (2.2-4.8); NEUTROPHILS % (AUTO) 67.4 % (42.0-75.0); RED BLOOD COUNT 4.25 X10^6/uL (4.7-6.0); RED CELL DISTRIBUTION WIDTH 17.1 % (11.6-16.5); WHITE BLOOD COUNT 12.2 X10^3/uL (3.6-10.0)
[2021-09-14] MEDS: NovoLIN R (or HumuLIN R) SUBCUT SCH ×6 (05:36→20:40)
[2021-09-14 06:01] LABS: ALANINE AMINOTRANSFERASE 28 Units/L (12-78); ALBUMIN 2.3 g/dL (3.4-5.0); ALKALINE PHOSPHATASE 111 Units/L (46-116); ASPARTATE AMINO TRANSFERASE 27 Units/L (15-37); BLOOD UREA NITROGEN 26 mg/dL (7-18); CALCIUM 8.3 mg/dL (8.5-10.1); CARBON DIOXIDE 24.6 mmol/L (21-32); CHLORIDE 107 mmol/L (98-107); COR CA(FOR HYPOALB) 9.7 mg/dL (8.5-10.1); COR NA(FOR HYPERGLY) 143 mmol/L (136-145); CREATININE 0.87 mg/dL (0.70-1.30); SODIUM 139 mmol/L (136-145); TOTAL PROTEIN 6.5 g/dL (6.4-8.2); eGFR NON BLACK RACES > 60 (>60)
[2021-09-14] MEDS: DUONEB 0.5 MG/3 MG (3 mL) NEB SCH ×3 (06:01→20:05)
[2021-09-14] MEDS: MESALAMINE 1.2 GM PO SCH (09:30)
[2021-09-14] MEDS: TOPAMAX TAB 100 MG PO SCH ×2 (09:31→22:39)
[2021-09-14] MEDS: COZAAR PO SCH (09:31)
[2021-09-14] MEDS: NEURONTIN CAP 400 MG PO SCH ×2 (09:31→22:38)
[2021-09-14] MEDS: LANTUS SC SCH (09:32)
[2021-09-14] MEDS: XARELTO PO SCH ×2 (09:32→22:38)
--- NOTE | 2021-09-14 10:28 | PCM.PROG ---
Progress Note - Progress Note for Day of Date of Exam: 09/14/21 - Subjective Subjective: WAS ADMITTED ON 09/06. HE IS BEING TREATED FOR BILATERAL LOWER LEG CELLULITIS, RHABDOMYOLYSIS, ACUTE BRONCHITIS, AND UNCONTROLLED DIABETES MELLITIS. TODAY, HE IS ALERT AND ORIENTED, LYING IN BED ON MORNING ROUNDS. HE CONTINUES WITH COMPLAINTS OF PAIN AND DECREASED RANGE OF MOTION TO TH E RIGHT LEG AND RIGHT KNEE, WELL GENERALIZED WEAKNESS AND BODY ACHES TODAY. HE DOES ADMIT TO SLIGHT IMPROVEMENT PAIN SINCE RECEIVING KENALOG/MARCAINE INJECTION YESTERDAY. NURSING STAFF AND PHYSICAL THERAPY HE REQUIRES MAXIMUM ASSISTANCE TO SIT ON THE SIDE OF THE BED. ON EXAMINATION, HEART IS REGULAR IN RATE AND RHYTHM. BILATERAL LUNGS NOTED WITH DIMINISHED LUNG SOUNDS THROUGHOUT. ABDOMEN IS OBESE, SOFT, AND NON-TENDER WITH NORMAL BOWEL SOUNDS NOTED IN ALL QUADRANTS. LOWER EXTREMITIES CONTINUE WITH DIFFUSE 1+ EDEMA, SHALLOW ULCERATIONS/WOUNDS, STAGE II WOUNDS, DIFFUSE INDURATIONS WITH ERYTHEMA. HIS VITALS THIS MORNING ARE: 99.2-80-22-90%-125/58. LABS WERE OBTAINED. ABNORMAL LAB VALUES INCLUDE THE FOLLOWING: WBC 12.2, RBC 4.25, HGB 11.3, HCT 35.2, BUN 26, GLUCOSE 247, CALCIUM 8.3, ALBUMIN 2.3. BLOOD CULTURES ARE PENDING. HE IS CURRENTLY RECEIVING NORMAL SALINE AT KVO, ZOSYN 3.375G IV TID, DUONEBS TID, GENTAMICIN CREAM TID, OTBS ACHS, LANTUS 35 UNITS SC AM, HUMULIN R 10 UNITS TID WITH MEALS, NORCO 10/325MG PO Q6H PRN, COLACE PRN, MILK OF MAGNESIA PRN. HIS HOME MEDICATIONS OF NEURONTIN, COZAAR, XARELTO, FLOMAX, RESTORIL, TOPAMAX, AND ULTRAM PRN WERE ALSO RESUMED. TODAY, WE WILL GIVEN THE PATIENT A KENALOG/MARCAINE INJECTION TO THE RIGHT KNEE. PATIENT WILL HAVE DAILY WOUND CARE. PHYSICAL THERAPY WILL CONTINUE TO WORK WITH PATIENT. OTHERWISE, WE PLAN TO FOLLOW UP WITH AM LABS AND CONTINUE TO MONITOR. TIME SPENT ON CLINICAL ASSESSMENT, REVIEWING LABS AND IMAGING, DECISION MAKING, AND DOCUMENTATION GREATER THAN 45 MINUTES. - Past Medical Family Social History Past Med/Fam/Surg Hx: No changes since H&P Allergies: Allergies metformin Allergy (Verified 08/15/21 11:40) semaglutide [From Ozempic] Allergy (Verified 08/15/21 11:40) - Review of Systems ROS: No change since H&P - Vital Signs and I&O's Vital Signs: Temperature 99.2 F Pulse Rate [Right] 80 Pulse Rate 90 Respiratory Rate 22 Blood Pressure [Right Arm] 125/58 Blood Pressure 141/62 O2 Sat by Pulse Oximetry 88 Intake and Output: Intake & Output 09/11/21 09/12/21 09/13/21 09/14/21 11:59 11:59 11:59 11:59 Intake Total 3694 / 3694 1628 / 1628 2815 / 2815 1482 / 1482 Output Total 3525 / 3525 2650 / 2650 2425 / 2425 500 / 500 Balance 169 / 169 -1022 / -1022 390 / 390 982 / 982 - Physical Exam Oriented: Normal Eyes: Normal Ear: Normal Nose: Normal Throat: Normal Respiratory: Generalized, Diminished Cardiovascular: Normal, Edema (1+ PITTING EDEMA ) : Normal Auscultation: Bowel Sounds: Normal Palpation: Normal Tenderness: Normal Skin: Red, Tender, Hot, Wound Musculoskeletal: Normal Psychiatric: Normal Mood Description: Calm Affect: Normal Speech Pattern: Clear, Appropriate - Laboratory and Diagnostics Result Diagrams: 09/14/21 04:46 09/14/21 04:46 Labs: 09/06/21 07:52 Blood Blood Culture - Final 09/06/21 07:26 Blood Blood Culture - Final Laboratory WBC 12.2 X10^3/uL (3.6-10.0) H 09/14/21 04:46 RBC 4.25 X10^6/uL (4.7-6.0) L 09/14/21 04:46 Hgb 11.3 g/dL (13.5-18.0) L 09/14/21 04:46 Hct 35.2 % (42.0-54.0) L 09/14/21 04:46 MCV 82.8 fL (80.0-100.0) 09/14/21 04:46 MCH 26.6 pg (27.0-34.0) L 09/14/21 04:46 MCHC 32.1 g/dL (33.0-35.0) L 09/14/21 04:46 RDW 17.1 % (11.6-16.5) H 09/14/21 04:46 Plt Count 424 X10^3/uL (150.0-450.0) 09/14/21 04:46 Plt Count Comment Adequate (ADEQUATE) 09/06/21 07:26 MPV 8.7 fL (7.4-11.0) 09/14/21 04:46 Neut % (Auto) 67.4 % (42.0-75.0) 09/14/21 04:46 Lymph % (Auto) 24.0 % (21.0-51.0) 09/14/21 04:46 [place] % (Auto) 5.4 % (0.0-13.0) 09/14/21 04:46 Eos % (Auto) 3.0 % (0.9-2.9) H 09/14/21 04:46 Baso % (Auto) 0.2 % (0.2-1.0) 09/14/21 04:46 Neut # (Auto) 8.2 x10^3/uL (2.2-4.8) H 09/14/21 04:46 Lymph # (Auto) 2.9 X10^3/uL (1.3-2.9) 09/14/21 04:46 [place] # (Auto) 0.7 x10^3/uL (0.3-0.8) 09/14/21 04:46 Eos # (Auto) 0.4 x10^3/uL (0.0-0.2) H 09/14/21 04:46 Baso # (Auto) 0.0 X10^3/uL (0.0-0.1) 09/14/21 04:46 Absolute Nucleated RBC 0.1 /100WBC 09/14/21 04:46 Total Counted 100 09/06/21 07:26 Neutrophils % (Manual) 65 % (39-76) 09/06/21 07:26 Band Neutrophils % 19 % (0-10) H 09/06/21 07:26 Lymphocytes % (Manual) 10 % (13-43) L 09/06/21 07:26 Monocytes % (Manual) 4 % (4-9) 09/06/21 07:26 Metamyelocytes % 2 09/06/21 07:26 Plt Morphology Comment Normal (NORMAL) 09/06/21 07:26 RBC Morphology Abnormal (NORMAL) 09/06/21 07:26 Hypochromasia Slight A 09/06/21 07:26 Tear Drop Cells Slight 09/06/21 07:26 Sodium 139 mmol/L (136-145) 09/14/21 04:46 Corrected Sodium 143 mmol/L (136-145) 09/14/21 04:46 Potassium 4.3 mmol/L (3.5-5.1) 09/14/21 04:46 Chloride 107 mmol/L (98-107) 09/14/21 04:46 Carbon Dioxide 24.6 mmol/L (21-32) 09/14/21 04:46 BUN 26 mg/dL (7-18) H 09/14/21 04:46 Creatinine 0.87 mg/dL (0.70-1.30) 09/14/21 04:46 Est GFR (MDRD) Af Amer > 60 (>60) 09/14/21 04:46 Est GFR (MDRD) Non-Af > 60 (>60) 09/14/21 04:46 Glucose 247 mg/dL (65-99) H 09/14/21 04:46 POC Glucose (mg/dL) 227 mg/dL (65-99) H 09/14/21 05:15 Lactic Acid 2.7 mmol/L (0.4-2.0) H 09/06/21 07:26 Calcium 8.3 mg/dL (8.5-10.1) L 09/14/21 04:46 Corrected Calcium 9.7 mg/dL (8.5-10.1) 09/14/21 04:46 Total Bilirubin 0.20 mg/dL (0.2-1.0) 09/14/21 04:46 AST 27 Units/L (15-37) 09/14/21 04:46 ALT 28 Units/L (12-78) 09/14/21 04:46 Alkaline Phosphatase 111 Units/L (46-116) 09/14/21 04:46 Creatine Kinase 72 Units/L (39-308) 09/10/21 04:45 CK-MB (CK-2) 7.5 ng/mL (0-4.0) H* 09/07/21 02:55 CK/CKMB % Calc 1.0 % (<4) 09/07/21 02:55 Troponin I High Sens 29.3 ng/L (4.0-60.0) 09/07/21 02:55 Total Protein 6.5 g/dL (6.4-8.2) 09/14/21 04:46 Albumin 2.3 g/dL (3.4-5.0) L 09/14/21 04:46 Globulin 4.2 g/dL (2.5-4.5) 09/14/21 04:46 Albumin/Globulin Ratio 0.5 Ratio (1.1-2.1) L 09/14/21 04:46 Specimen Type Catherized urine 09/06/21 07:26 Urine Color Yellow (YELLOW) 09/06/21 07:26 Urine Appearance Clear (CLEAR) 09/06/21 07:26 Urine pH 8.0 (5.0 - 8.0) 09/06/21 07:26 Ur Specific [place] 1.010 (1.000-1.030) 09/06/21 07:26 Urine Protein 1+ (NEGATIVE) 09/06/21 07:26 Urine Glucose (UA) 2+ (NEGATIVE) 09/06/21 07:26 Urine Ketones Negative (NEGATIVE) 09/06/21 07:26 Urine Occult Blood 1+ (NEGATIVE) 09/06/21 07:26 Urine Nitrite Negative (NEGATIVE) 09/06/21 07:26 Urine Bilirubin Negative (NEGATIVE) 09/06/21 07:26 Urine Urobilinogen Normal (NORMAL) 09/06/21 07:26 Ur Leukocyte Esterase Negative (NEGATIVE) 09/06/21 07:26 Urine RBC 0-2 /HPF (0-3) 09/06/21 07:26 Urine WBC None seen /HPF (0-5) 09/06/21 07:26 Ur Squamous Epith Cells Rare /HPF (NEGATIVE) 09/06/21 07:26 Urine Bacteria Negative /HPF (NEGATIVE) 09/06/21 07:26 Ur Culture Indicated? No/not indicated 09/06/21 07:26 SARS-CoV-2 (PCR) Negative (NEGATIVE) 09/06/21 09:55 Influenza Type A (PCR) Negative (NEGATIVE) 09/06/21 09:55 Influenza Type B (PCR) Negative (NEGATIVE) 09/06/21 09:55 RSV (PCR) Negative (NEGATIVE) 09/06/21 09:55 - Plan (1) Bilateral lower leg cellulitis Status: Acute Plan: WOUND CARE, NORMAL SALINE AT KVO, ZOSYN 3.375G IV TID, DUONEBS TID, GENTAMICIN CREAM TID, OTBS ACHS, LANTUS 35 UNITS SC AM, HUMULIN R 10 UNITS TID WITH MEALS, [place]CO 10/325MG PO Q6H PRN. RESUME HOME MEDS. 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 Diabetes mellitus complication status: with skin complications Diabetes mellitus complication detail: with other skin ulcer Qualified Code(s): E11.622 - Type 2 diabetes mellitus with other skin ulcer; Z79.4 - intermediate (current) use of insulin (6) Hypertension Status: Chronic Qualifiers: Hypertension type: primary hypertension Qualified Code(s): I10 - Essential (primary) hypertension (7) Diabetic neuropathy Status: Chronic Qualifiers: Diabetes mellitus type: type 2 Diabetes mellitus complication detail: with other neurological complication Qualified Code(s): E11.49 - Type 2 diabetes mellitus with other diabetic neurological complication
[2021-09-14] MEDS: NYSTATIN POWDER TOP SCH ×2 (16:21→22:41)
[2021-09-14] MEDS: SNACK - Diabetic Appropriate PO SCH (20:45)
[2021-09-14] MEDS: FLOMAX PO SCH (22:38)
[2021-09-15 04:48] LABS: BASOPHILS % (AUTO) 0.3 % (0.2-1.0); EOSINOPHILS # (AUTO) 0.3 x10^3/uL (0.0-0.2); EOSINOPHILS % (AUTO) 2.5 % (0.9-2.9); HEMATOCRIT 37.6 % (42.0-54.0); HEMOGLOBIN 11.8 g/dL (13.5-18.0); MEAN CORPUSCULAR HEMOGLOBIN 25.9 pg (27.0-34.0); MEAN CORPUSCULAR HGB CONC 31.3 g/dL (33.0-35.0); MEAN CORPUSCULAR VOLUME 82.8 fL (80.0-100.0); MEAN PLATELET VOLUME 8.6 fL (7.4-11.0); MONOCYTES # (AUTO) 0.9 x10^3/uL (0.3-0.8); MONOCYTES % (AUTO) 7.5 % (0.0-13.0); NEUTROPHILS # (AUTO) 7.7 x10^3/uL (2.2-4.8); NEUTROPHILS % (AUTO) 64.7 % (42.0-75.0); RED BLOOD COUNT 4.54 X10^6/uL (4.7-6.0); RED CELL DISTRIBUTION WIDTH 17.3 % (11.6-16.5); WHITE BLOOD COUNT 11.9 X10^3/uL (3.6-10.0)
[2021-09-15] MEDS: DUONEB 0.5 MG/3 MG (3 mL) NEB SCH (05:00)
[2021-09-15 05:18] LABS: ALANINE AMINOTRANSFERASE 31 Units/L (12-78); ALBUMIN 2.2 g/dL (3.4-5.0); ALKALINE PHOSPHATASE 111 Units/L (46-116); ASPARTATE AMINO TRANSFERASE 36 Units/L (15-37); BLOOD UREA NITROGEN 27 mg/dL (7-18); CALCIUM 8.5 mg/dL (8.5-10.1); CARBON DIOXIDE 26.5 mmol/L (21-32); CHLORIDE 109 mmol/L (98-107); COR CA(FOR HYPOALB) 9.9 mg/dL (8.5-10.1); COR NA(FOR HYPERGLY) 145 mmol/L (136-145); CREATININE 0.94 mg/dL (0.70-1.30); SODIUM 143 mmol/L (136-145); TOTAL PROTEIN 6.5 g/dL (6.4-8.2); eGFR NON BLACK RACES > 60 (>60)
[2021-09-15] MEDS: ZOSYN VIAL 3.375 GRAMS 3.375 G in NS 100 ML IV 100 ML IV SCH (05:30)
[2021-09-15] MEDS: GENTAMICIN TOPICAL CRM TOP SCH (05:32)
[2021-09-15] MEDS: NovoLIN R (or HumuLIN R) SUBCUT SCH ×4 (05:33→12:20)
--- NOTE | 2021-09-15 05:46 | RAD ---
HISTORYCOUGH, SOB PMH: DM, HTN PSH: APPENDIX, ORTHO, GB, ABDSTUDYCHEST, 1 [id number] trachea is midline. The cardiac silhouette is mildly enlarged.. Bilateral airspace opacities unchanged. No pneumothorax. The bony thorax is unremarkable.IMPRESSIONStable portable chest.Electronically signed by: Mitch You (Sep 15, 2021 05:45:07)
[2021-09-15] MEDS: XARELTO PO SCH (09:08)
[2021-09-15] MEDS: TOPAMAX TAB 100 MG PO SCH (09:08)
[2021-09-15] MEDS: NYSTATIN POWDER TOP SCH (09:08)
[2021-09-15] MEDS: COZAAR PO SCH (09:08)
[2021-09-15] MEDS: NEURONTIN CAP 400 MG PO SCH (09:09)
[2021-09-15] MEDS: LANTUS SC SCH (09:09)
[2021-09-15] MEDS: MESALAMINE 1.2 GM PO SCH (09:09)
[2021-09-15 12:17] VITALS: BP 150/69
== END 2021-09-15 12:55 | DRG 603 ==
LOC: ER 06:37 → MED/SURG 10:27
PROVIDERS: ADMIT Internal Medicine; ATTEND Internal Medicine
DX: E11.65 Type 2 diabetes mellitus with hyperglycemia; R20.0 Anesthesia of skin; E11.622 Type 2 diabetes mellitus with other skin ulcer; Z79.4 Long term (current) use of insulin; Z20.822 Contact with and (suspected) exposure to COVID-19; M25.561 Pain in right knee; E11.49 Type 2 diabetes mellitus with other diabetic neurological complication; M62.82 Rhabdomyolysis; L03.116 Cellulitis of left lower limb; R06.02 Shortness of breath; L03.115 Cellulitis of right lower limb; J20.8 Acute bronchitis due to other specified organisms; R26.89 Other abnormalities of gait and mobility